=== PATIENT | female | born 1975 | race Caucasian/White ===

== ENCOUNTER 2017-04-26 11:26 | Day surgery (SDC) | payer MEDICAID ==
[2017-04-23 09:55] VITALS: BMI 29.2
[2017-04-26] MEDS ORDERED: Gentamicin 160 MG in Sodium Chloride 0.9% 100 ML IVPB ONE (12:47)
[2017-04-26] MEDS ORDERED: Ciprofloxacin 400mg/200ml D5W 400 MG/200 ML BAG IVPB ONE (14:33)
[2017-04-26] MEDS ORDERED: Midazolam 2 MG/2 ML VIAL ONE (14:49)
[2017-04-26] MEDS ORDERED: Propofol 10 mg/ml Inj (20 ML) ONE (14:50)
[2017-04-26] MEDS ORDERED: Labetalol 25mg/5ml Syringe ONE (15:32)
[2017-04-26] MEDS ORDERED: Lactated Ringer's 1,000 ML IV ONE (15:40)
[2017-04-26] MEDS: HYDROmorphone 0.5 mg/0.5 ml ISec IVP PRN ×3 (15:40→16:44)
--- NOTE | 2017-04-26 16:50 | RAD ---
HISTORY: URETERAL STONE COMPARISON: No prior. FINDINGS: BOWEL: Normal. No obstruction. No free air. BONES: Normal. OTHER FINDINGS: Position of the double J stent catheter(s): Satisfactory. Calculi identified lower pole right kidney. Calculus overlying the proximal aspect of the ureteral stent measuring 9 mm. IMPRESSION: Calculus disease proximal right ureter and lower pole right kidney. Double-J stent catheter on the right in satisfactory position.
--- NOTE | 2017-04-26 16:51 | RAD ---
PROCEDURE: Intraoperative Fluoroscopy. HISTORY: URETERAL STONE FINDINGS: Fluoroscopic assistance was provided for cystogram and retrograde study. Please refer to the operative report from ROSSY Clark. 25.3 seconds fluoro time employed. Dosimetry: 1.96 mGy per meter squared.
[2017-04-26] MEDS ORDERED: Lactated Ringer's 500 ML IV ONE (17:05)
[2017-04-26 17:37] VITALS: BP 128/71; PULSE 73; RESP 18; TEMP 98; O2SAT 100
--- NOTE | 2017-04-29 00:32 | OP ---
PROCEDURE DATE: 04/26/2017. PREOPERATIVE DIAGNOSIS: Right upper ureteral calculi. POSTOPERATIVE DIAGNOSIS: Right upper ureteral calculi. PROCEDURES: Ureteroscopy, laser lithotripsy, stone manipulation, removal of stent and reinsertion of new stent. FINDINGS: An upper ureteral calculi. DESCRIPTION OF PROCEDURE: The procedure is as follows. Prior to the procedure, a detailed informed consent was obtained from the patient. She was apprised to all risks and complications of ureteroscopy and laser lithotripsy and alternative methods of treatment. She agreed to accept the risks and she was brought into the room, draped and prepped in the usual manner. She received prophylactic antibiotics. A timeout was taken according to the rules and regulations of [facility]. The patient was then cystoscoped with #21 Storz panendoscope after fluoroscopy revealed that a stone was still present in the upper ureter. The tip of the stent was grasped and pulled up the ureter. A guidewire was passed through the stent and up into the renal pelvis and then the stent was removed. The cystoscope was removed. The guidewire was fixed to the drape. The patient then had the ureteroscope inserted with a second guidewire in the ureteroscope. That second guidewire was passed up to the right ureteral orifice and into the renal pelvis under fluoroscopic control. Hydrodilatation of the ureter was then carried out and the scope was passed up to the upper ureter until the stone was encountered. The guidewire with endoscope was removed and replaced with the laser fiber and the stone was fragmented into multiple small fragments using the laser. Once all the stone parts have been fragmented to sizes small enough to pass spontaneously, laser fiber was removed and the guidewire was reinserted under fluoroscopic control. The scope was backed out. A 6-[place] double-J stent in variable length was then passed over the original guidewire and positioned in proper position. Both guidewires were then slowly removed using the pusher to keep the stent from being pulled out also. The stent was deployed in the proper position. Fluoroscopy showed no evidence of radiopaque calculi remaining. The string was left on the stent. The patient tolerated this procedure very well. She was sent to the recovery room in good condition. She will be given detailed postoperative instructions and followup appointment in our office in one week. Mik Whiteside MD [facility] # [id number]
== END 2017-04-26 18:41 | disposition home or self-care (01) ==
LOC: C.SDS 11:26
PROVIDERS: ATTEND Urology
DX: N20.0 Calculus of kidney (principal); N20.2 Calculus of kidney with calculus of ureter
CPT/HCPCS: 50953; 50961; 74018; 82948; 88304; C1758; C1769; C2617; J1170; J2405; J7120

== ENCOUNTER 2017-05-09 17:52 | Inpatient (IN) | payer MEDICAID ==
[2017-05-09 17:53] VITALS: BMI 29.2
[2017-05-09] MEDS ORDERED: Sodium Chloride 0.9% 1,000 ML ONE (18:48)
[2017-05-09] MEDS ORDERED: Sodium Chloride 0.9% 1,000 ML IV ONE ×2 (18:49→20:43)
[2017-05-09] MEDS ORDERED: cefTRIAXone IV 1 gm in Dextros 50 ML IV ONE (18:50)
[2017-05-09] MEDS ORDERED: cefTRIAXone IV 1 gm in Dextros 50 ML IVPB ONE (19:07)
[2017-05-09 19:11] LABS: BASO # 0.1 K/uL (0.0-0.2); BASO % 0.7 % (0.0-2.0); EOS % 0.1 % (0.0-4.0); HEMOGLOBIN 10.8 g/dL (11.0-16.0); LYMPH # 1.4 K/uL (1.0-4.3); LYMPH % 9.8 % (20.0-40.0); MEAN CELL VOLUME 86.3 fL (81.0-99.0); MEAN CORPUSCULAR HEMOGLOBIN 29.7 pg (27.0-31.0); MEAN CORPUSCULAR HGB CONC 34.4 g/dL (33.0-37.0); MEAN PLATELET VOLUME 7.8 fL (7.2-11.7); MONO # 1.6 K/uL (0.0-0.8); MONO % 11.3 % (0.0-10.0); NEUT # 10.9 K/uL (1.8-7.0); NEUT % 78.1 % (50.0-75.0); PLATELET COUNT 211 K/uL (130-400); RBC 3.64 Mil/uL (3.80-5.20); RED CELL DISTRIBUTION WIDTH 14.1 % (11.5-14.5); WHITE BLOOD COUNT 13.9 K/uL (4.8-10.8)
[2017-05-09 19:21] LABS: ALB/GLOB RATIO 0.8 (1.0-2.1); ALBUMIN 4.3 g/dL (3.5-5.0); ALT/SGPT 17 U/L (9-52); AST/SGOT 19 U/L (14-36); BLOOD UREA NITROGEN 6 mg/dL (7-17); CALCIUM 9.2 mg/dl (8.6-10.4); GFR AFRICAN-AMERICAN > 60; GFR NON-AFRICAN AMERICAN > 60
[2017-05-09 19:30] LABS: INR 1.3; PROTHROMBIN TIME 14.8 SECONDS (9.7-12.2)
[2017-05-09 19:47] LABS: BANDS 8 % (0-2); LYMPHOCYTE 10 % (20-40); MONOCYTE 14 % (0-10); NEUTROPHIL 68 % (50-75); TOTAL CELLS COUNTED 100
[2017-05-09 19:50] LABS: HYPOCHROMIC SLIGHT; LARGE PLATELETS PRESENT; MICROCYTOSIS SLIGHT; PLATELET ESTIMATE NORMAL (NORMAL)
[2017-05-09 20:01] LABS: SQUAMOUS EPITHIAL 3 /hpf (0-5); URINE BACTERIA MOD (<OCC); URINE BILIRUBIN NEGATIVE (NEGATIVE); URINE BLOOD 2+ (NEGATIVE); URINE CLARITY Hazy (Clear); URINE COLOR Amber (YELLOW); URINE GLUCOSE (UA) NORMAL (Normal); URINE PROTEIN 2+ mg/dL (NEGATIVE)
--- NOTE | 2017-05-09 20:01 | C.PDOC ---
History Of Present Illness 41yo female, presents to ED with complaints of fever, chills, dysuria for the past couple days. Patient states she was treated for a UTI last month by Dr. Whiteside. She had a right uretral stent, which was removed for a lithotrypsy and replaced on April 28, 2017. She denies any other medical complaints. Time Seen by Provider: 05/09/17 18:37 Chief Complaint (Nursing): Abdominal Pain History Per: Patient History/Exam Limitations: no limitations Onset/Duration Of Symptoms: Days Current Symptoms Are (Timing): Still Present Associated Symptoms: Fever, Chills, Urinary Symptoms. denies: Nausea, Vomiting , Diarrhea Past Medical History Reviewed: Historical Data, Nursing Documentation, Vital Signs Vital Signs: Last Vital Signs Temp 101.9 F H 05/09/17 20:14 Pulse 135 H 05/09/17 20:14 Resp 20 05/09/17 20:14 BP 113/67 05/09/17 20:14 Pulse Ox 95 05/09/17 20:35 - Medical History PMH: Anemia, Hypercholesterolemia, Hypothyroidism, Kidney Stones, Chronic Kidney Disease Surgical History: Cholecystectomy, Endoscopy Family History: States: No Known Family Hx - Social History Hx Alcohol Use: No Hx Substance Use: No - Immunization History Hx Tetanus Toxoid Vaccination: No Hx Influenza Vaccination: No Hx Pneumococcal Vaccination: No Review Of Systems Except As Marked, All Systems Reviewed And Found Negative. Constitutional: Positive for: Fever, Chills Gastrointestinal: Negative for: Nausea, Vomiting, Abdominal Pain Genitourinary: Positive for: Dysuria Physical Exam - Physical Exam Appears: Non-toxic, Other (mild to moderate distress) Skin: Normal Color Head: Normacephalic Eye(s): bilateral: Normal Inspection Neck: Normal ROM, Supple Chest: Symmetrical Cardiovascular: Rhythm Regular Respiratory: Normal Breath Sounds Gastrointestinal/Abdominal: Normal Exam, Soft, Tenderness (right upper abdomen tenderness to deep palpation) Back: CVA Tenderness (right) Extremity: Normal ROM Neurological/Psych: Oriented x3 ED Course And Treatment - Laboratory Results Result Diagrams: 05/09/17 19:05 05/09/17 19:05 Lab Interpretation: Abnormal (UA 238 WBC's) ECG: Interpreted By Me, Viewed By Me ECG Rhythm: Sinus Tachycardia Rate From EC O2 Sat by Pulse Oximetry: 95 (RA) - Radiology CXR: Interpreted by Me CXR Interpretation: Yes: No Acute Disease - Other Rad abd x 2 X-Ray: Interpreted by Me (R ureteral stent in good place) Reevaluation Time: 20:44 Reassessment Condition: Improved - Physician Consult Information Outcome Of Conversation: 1939: d/w Dr. Devon Pino, ok to admit. 2039: d/w Dr. Whiteside will consult Medical Decision Making Medical Decision Making: Plan: -- Labs -- EKG -- Fluids -- Rocephin 1gm IV -- Toradol 30mg IVP -- Tylenol 975 mg PO Time: 1942 Patient to be admitted under Dr. Boris Pino for pyelonephritis. recurent UTI/R pyelo with R ureteral stent in place. Disposition Doctor Will See Patient In The: Hospital Counseled Patient/Family Regarding: Studies Performed, Diagnosis - Disposition Disposition: HOSPITALIZED Disposition Time: 20:45 Condition: GOOD - Clinical Impression Clinical Impression: Pain due to ureteral stent, Pyelonephritis - Scribe Statement The provider has reviewed the documentation as recorded by the Scribe (Duyen Delgado) Provider Attestation: All medical record entries made by the Scribe were at my direction and personally dictated by me. I have reviewed the chart and agree that the record accurately reflects my personal performance of the history, physical exam, medical decision making, and the department course for this patient. I have also personally directed, reviewed, and agree with the discharge instructions and disposition.
[2017-05-09 20:03] LABS: URINE LEUKOCYTE ESTERASE 2+ Leu/uL (Negative)
[2017-05-09] MEDS ORDERED: Vancomycin 1 GM in Sodium Chloride 0.9% 200 ML IVPB STA (22:54)
[2017-05-09] MEDS ORDERED: Potassium Chloride 20 mEq ER Tab PO ONE (23:15)
[2017-05-09] MEDS: Oxycodone/Acetaminophen 5/325 mg Tab PO PRN (23:48)
[2017-05-09] MEDS: Ciprofloxacin 400mg/200ml D5W 400 MG/200 ML BAG IVPB SCH (23:53)
[2017-05-10] MEDS ORDERED: Dextrose 50% SYRINGE Inj (50 ml) IV PRN (06:22)
[2017-05-10] MEDS ORDERED: Glucagon Recombinant 1 mg Inj IM PRN (06:22)
--- NOTE | 2017-05-10 06:26 | CP.PCM.PN ---
Subjective - Date & Time of Evaluation Date of Evaluation: 05/10/17 Time of Evaluation: 06:14 - Subjective Subjective: PGY-[address] Pino's service: Pt seen and examined at bedside. Nursing reports patient febrile overnight. STAT tylenol ordered, which did not bring down fever, so Motrin was ordered. Patient c/o of bilateral headache at this time, and burning with urination. Admits fever, chills, palpitations but denies increased frequency, SOB, chest pain. CODE SEPSIS due to elevated lactate. Dr Landa consulted. Stat Gentamycin and Merrem orders entered. IV fluids initiated. Objective - Vital Signs/Intake and Output Vital Signs (last 24 hours): Temp Pulse Resp BP Pulse Ox 98.2 F 130 H 20 100/62 95 05/10/17 05:04 05/10/17 05:04 05/10/17 05:04 05/10/17 05:04 05/10/17 00:00 - Medications Medications: Current Medications Acetaminophen (Tylenol 325mg Tab) 650 mg PO Q6 PRN PRN Reason: Fever >100.4 F Last Admin: 05/09/17 23:52 Dose: 650 mg Gemfibrozil (Lopid) 600 mg PO BID NAJMA Ciprofloxacin (Cipro 400mg/200ml Dsw) 400 mg in 200 mls @ 133 mls/hr IVPB Q12H NAJMA PRN Reason: Protocol Last Admin: 05/09/17 23:53 Dose: 133 mls/hr Insulin Aspart (Novolog) 0 unit SC ACHS NAJMA PRN Reason: Protocol Levothyroxine Sodium (Synthroid) 50 mcg PO DAILY@0630 NAJMA Metformin HCl (Glucophage) 500 mg PO BID NAJMA Oxycodone/Acetaminophen (Percocet 5/325 Mg Tab) 1 tab PO Q6H PRN PRN Reason: pain Stop: 05/12/17 22:55 Last Admin: 05/09/17 23:48 Dose: 1 tab Pneumococcal Polyvalent Vaccine (Pneumovax 23 Vaccine) 0.5 ml IM .ONCE ONE Stop: 05/11/17 10:01 - Labs Labs: 05/09/17 19:05 05/09/17 19:05 PT 14.8 SECONDS (9.7-12.2) H 05/09/17 19:05 INR 1.3 05/09/17 19:05 APTT 29 SECONDS (21-34) 05/09/17 19:05 - Constitutional Appears: Non-toxic, No Acute Distress - Head Exam Head Exam: ATRAUMATIC, NORMAL INSPECTION - Eye Exam Eye Exam: EOMI. absent: Scleral icterus Pupil Exam: PERRL - ENT Exam ENT Exam: Mucous Membranes Dry - Neck Exam Neck Exam: Full ROM - Respiratory Exam Respiratory Exam: Clear to Ausculation Bilateral, NORMAL BREATHING PATTERN. absent: Rales, Rhonchi, Wheezes - Cardiovascular Exam Cardiovascular Exam: Tachycardia, +S1, +S2 - GI/Abdominal Exam GI & Abdominal Exam: Soft, Tenderness (RUQ abdominal pain), Normal Bowel Sounds. absent: Distended, Firm, Hernia Assessment and Plan - Assessment and Plan (Free Text) Plan: Sepsis Lactate 3.2 this AM; Tmax 102.7, Tachy @ >130 bpm Source: Pyelonephritis STAT CBC/CMP ordered Spoke with Dr. Landa, ID hr consultant, this AM STAT Gentamycin ONCE + Merrem 500mg Q8H LR @ 150cc/hr F/u repeat lactate in 3 hours Pyelonephritis, acute Admit to med/surg Febrile on admission (Tmax 102.7) UA: Nitrate positive, LE 2+, WBC 238, Mod bacteria HCG negative Dr. Landa, ID hr consultant, help appreciated - Cipro 400mg IV Q12h (Start 05/09/17, Day 2) STAT Gentamycin ONCE + Merrem 500mg Q8H Tylenol 650mg PO Q6H PRN fever Percocet 5/325 mg PO Q6H PRN Hx of ureteral stones Dr. Whiteside, Urology hr consultant, help appreciated Recent lithotripsy Right ureteral stent placed 04/28/17 Xr ABD (05/10/17): Stent remains in appropriate position. Leukocytosis with bandemia WBC 13.9, 8 bands See sepsis above f/u AM labs DM-II Metformin 500mg PO BID DAR Accuchecks Hypoglycemia protocol f/u A1c, Lipid panel Hyperlipidemia Gemfibrozil 600mg PO BID Hypothyroidism 50mcg PO Daily f/u TSH, Free t4 Anemia Hgb 10.8 on presenation Monitor Elevated T bili 1.8 on initial labs Will monitor Electrolyte abnormalities Will replete as needed Prophylaxis SCDs Protonix 40mg PO Daily Lovenox 40mg SC daily Wilfredo Joel PGY-2 All medical management per Dr. Pino
[2017-05-10] MEDS: Levothyroxine 50 MCG TAB PO SCH (06:32)
[2017-05-10] MEDS: (Novolog) Insulin Aspart, Recombinant 100 u/ml 10 ml vial SC SCH ×4 (08:14→22:07)
[2017-05-10] MEDS ORDERED: Lactated Ringer's 1,000 ML IV SCH ×2 (09:30→09:33)
[2017-05-10 09:53] LABS: VENOUS BLOOD GAS BASE EXCESS 1.6 mmol/L (0.0-2.0); VENOUS BLOOD GAS PCO2 33 mmHg (40-60); VENOUS BLOOD GAS PO2 47 mm/Hg (30-55); VENOUS BLOOD PH 7.48 (7.32-7.43)
[2017-05-10] MEDS: Pantoprazole 40 mg EC Tab PO SCH (10:16)
--- NOTE | 2017-05-10 10:16 | PCM.SEPTIC ---
Sepsis Progress Note - Reassessment Type Date of Evaluation: 05/10/17 Time of Evaluation: 10:15 Reassessment Type: Non-invasive reassessment - Non Invasive Reassessment Were the most recent vital sign reviewed: Yes Vital Sign (Latest): Temp Pulse Resp BP Pulse Ox 102.8 F H 135 H 20 96/61 L 97 05/10/17 09:14 05/10/17 08:01 05/10/17 08:01 05/10/17 08:01 05/10/17 08:01 Cardiovascular: Yes: Tachycardia. No: Gallop, JVD, Murmur Respiratory: No: Accessory Muscle Use, Rales, Rhonchi, Stridor, Wheezing, Respiratory Distress Capillary Refill: Normal (Less than 2 sec) Pulses: Normal Radial, Normal Dorsalis Pedis, Normal Posterior Tibialis Skin: Normal Color, Warm, Dry Was a central venous oxygen measurement obtained within 6 hours after the presentation of septic shock: No Was a bedside cardiovascular ultrasound performed within 6 hours after the presentation of septic shock: No Was a passive leg raise performed or was a fluid challenge performed within 6 hrs of the initial fluid bolus: No Fluid Challenge performed: Yes
[2017-05-10] MEDS ORDERED: Meropenem 500 MG in Sodium Chloride 0.9% 100 ML IVPB SCH (11:00)
[2017-05-10 11:14] LABS: HDL CHOLESTEROL 14 mg/dL (30-70)
[2017-05-10 11:16] LABS: BASO % 0.3 % (0.0-2.0); EOS % 0.2 % (0.0-4.0); LYMPH # 1.4 K/uL (1.0-4.3); LYMPH % 12.7 % (20.0-40.0); MEAN CELL VOLUME 85.6 fL (81.0-99.0); MEAN PLATELET VOLUME 7.7 fL (7.2-11.7); MONO # 1.3 K/uL (0.0-0.8); MONO % 12.1 % (0.0-10.0); NEUT % 74.7 % (50.0-75.0); RBC 2.85 Mil/uL (3.80-5.20); RED CELL DISTRIBUTION WIDTH 13.8 % (11.5-14.5); WHITE BLOOD COUNT 10.7 K/uL (4.8-10.8)
[2017-05-10 11:17] LABS: HEMOGLOBIN 8.6 g/dL (11.0-16.0)
[2017-05-10 11:28] LABS: ALB/GLOB RATIO 0.9 (1.0-2.1); ALBUMIN 3.2 g/dL (3.5-5.0); ALT/SGPT 13 U/L (9-52); AST/SGOT 16 U/L (14-36); BLOOD UREA NITROGEN 7 mg/dL (7-17); CALCIUM 8.4 mg/dl (8.6-10.4); GFR AFRICAN-AMERICAN > 60; GFR NON-AFRICAN AMERICAN > 60; LDL CHOLESTEROL < 30 mg/dL (0-129)
--- NOTE | 2017-05-10 11:56 | CARD ---
APPROVED REPORT EKG Measurement Heart [id number] <Conclusion> Sinus tachycardia with short AK Cannot rule out Anterior infarct, age undetermined Abnormal ECG
--- NOTE | 2017-05-10 12:06 | CP.PCM.PN ---
Subjective - Date & Time of Evaluation Date of Evaluation: 05/10/17 Time of Evaluation: 12:00 - Subjective Subjective: 41 year old female admitted thru er who had ureteroscopy last week and spiked temp despite being on cipro. Kub shows stent in good position,Pt has temp now but am wbc is less than admission.urine C&S is positive for Gram neg RODS. A Pylonephritis P Treat infection with sensitive antibiotics as per urine C&S Suggest ct scan to RO Abcess. IF temp fails to drop with sensitive antibiotics consider ID consult. Stevo Objective - Vital Signs/Intake and Output Vital Signs (last 24 hours): Temp Pulse Resp BP Pulse Ox 102.8 F H 135 H 20 96/61 L 97 05/10/17 09:14 05/10/17 08:01 05/10/17 08:01 05/10/17 08:01 05/10/17 08:01 - Medications Medications: Current Medications Acetaminophen (Tylenol 325mg Tab) 650 mg PO Q6 PRN PRN Reason: Fever >100.4 F Last Admin: 05/10/17 08:14 Dose: 650 mg Dextrose (Dextrose 50% Inj) 0 ml IV STAT PRN; Protocol PRN Reason: Hypoglycemia Protocol Dextrose (Glutose 15) 0 gm PO ONCE PRN; Protocol PRN Reason: Hypoglycemia Protocol Enoxaparin Sodium (Lovenox) 40 mg SC DAILY [facility] Gemfibrozil (Lopid) 600 mg PO BID [facility] Last Admin: 05/10/17 10:16 Dose: 600 mg Glucagon (Glucagen Diagnostic Kit) 0 mg IM STAT PRN; Protocol PRN Reason: Hypoglycemia Protocol Ciprofloxacin (Cipro 400mg/200ml Dsw) 400 mg in 200 mls @ 133 mls/hr IVPB Q12H [facility] PRN Reason: Protocol Last Admin: 05/09/17 23:53 Dose: 133 mls/hr Dextrose (Dextrose 5% In Water 1000 Ml) 1,000 mls @ 0 mls/hr IV .Q0M PRN; Protocol; Per Protocol PRN Reason: Hypoglycemia Protocol Lactated Ringer's (Lactated Ringer's) 1,000 mls @ 150 mls/hr IV .Q6H40M [facility] Last Admin: 05/10/17 09:40 Dose: 150 mls/hr Meropenem 500 mg/ Sodium (Chloride) 100 mls @ 100 mls/hr IVPB Q8H NAJMA PRN Reason: Protocol Insulin Aspart (Novolog) 0 unit SC ACHS NAJMA PRN Reason: Protocol Last Admin: 05/10/17 08:14 Dose: 2 unit Levothyroxine Sodium (Synthroid) 50 mcg PO DAILY@0630 [facility] Last Admin: 05/10/17 06:32 Dose: 50 mcg Metformin HCl (Glucophage) 500 mg PO BID [facility] Last Admin: 05/10/17 10:16 Dose: 500 mg [id number] Ethyl Esters (Lovaza) 1 gm PO BID [facility] Oxycodone/Acetaminophen (Percocet 5/325 Mg Tab) 1 tab PO Q6H PRN PRN Reason: pain Stop: 05/12/17 22:55 Last Admin: 05/09/17 23:48 Dose: 1 tab Pantoprazole Sodium (Protonix Ec Tab) 40 mg PO DAILY [facility] Last Admin: 05/10/17 10:16 Dose: 40 mg Pneumococcal Polyvalent Vaccine (Pneumovax 23 Vaccine) 0.5 ml IM .ONCE ONE Stop: 05/11/17 10:01 Potassium Chloride (K-Dur 20 Meq Er Tab) 40 meq PO Q2H [facility] Stop: 05/10/17 13:31 - Labs Labs: 05/10/17 10:45 05/10/17 10:45 PT 14.8 SECONDS (9.7-12.2) H 05/09/17 19:05 INR 1.3 05/09/17 19:05 APTT 29 SECONDS (21-34) 05/09/17 19:05
--- NOTE | 2017-05-10 12:11 | CP.PCM.CON ---
History of Present Illness - History of Present Illness History of Present Illness: 41yo female, presents to ED with complaints of fever, chills, dysuria for the past couple days. Patient states she was treated for a UTI last month by Dr. Whiteside. She had a right uretral stent, which was removed for a lithotrypsy and replaced on April 28, 2017. She denies any other medical complaints. - Medical History PMH: Anemia, Hypercholesterolemia, Hypothyroidism, Kidney Stones, Chronic Kidney Disease Surgical History: Cholecystectomy, Endoscopy Family History: States: No Known Family Hx - Social History Hx Alcohol Use: No Hx Substance Use: No - Immunization History Hx Tetanus Toxoid Vaccination: No Hx Influenza Vaccination: No Hx Pneumococcal Vaccination: No Review Of Systems Except As Marked, All Systems Reviewed And Found Negative. Constitutional: Positive for: Fever, Chills Gastrointestinal: Negative for: Nausea, Vomiting, Abdominal Pain Genitourinary: Positive for: Dysuria Past Patient History - Past Medical History & Family History Past Medical History?: Yes - Past Social History Smoking Status: Never Smoked - CARDIAC Hx Cardiac Disorders: Yes Hx Hypercholesterolemia: Yes - PULMONARY Hx Respiratory Disorders: No - NEUROLOGICAL Hx Neurological Disorder: No - HEENT Hx HEENT Problems: No - RENAL Hx Chronic Kidney Disease: Yes Hx Kidney Stones: Yes - ENDOCRINE/METABOLIC Hx Endocrine Disorders: Yes Hx Diabetes Mellitus Type 2: Yes Hx Hypothyroidism: Yes - HEMATOLOGICAL/ONCOLOGICAL Hx Blood Disorders: Yes Hx Anemia: Yes - INTEGUMENTARY Hx Dermatological Problems: No - MUSCULOSKELETAL/RHEUMATOLOGICAL Hx Falls: No - GASTROINTESTINAL Hx Gastrointestinal Disorders: No - GENITOURINARY/GYNECOLOGICAL Hx Genitourinary Disorders: Yes Other/Comment: POLYCYSTIC OVARIES - PSYCHIATRIC Hx Substance Use: No - SURGICAL HISTORY Hx Surgeries: Yes Hx Cholecystectomy: Yes Other/Comment: lithotripsy, insertion of ureteral stent right - ANESTHESIA Hx Anesthesia: Yes Hx Anesthesia Reactions: No Hx Malignant Hyperthermia: No Has any member of the family had a problem w/ anesthesia?: No Meds Allergies/Adverse Reactions: Allergies Allergy/AdvReac Type Severity Reaction Status Date / Time No Known Allergies Allergy Verified 05/09/17 18:08 - Medications Medications: Current Medications Acetaminophen (Tylenol 325mg Tab) 650 mg PO Q6 PRN PRN Reason: Fever >100.4 F Last Admin: 05/10/17 08:14 Dose: 650 mg Dextrose (Dextrose 50% Inj) 0 ml IV STAT PRN; Protocol PRN Reason: Hypoglycemia Protocol Dextrose (Glutose 15) 0 gm PO ONCE PRN; Protocol PRN Reason: Hypoglycemia Protocol Enoxaparin Sodium (Lovenox) 40 mg SC DAILY [facility] Gemfibrozil (Lopid) 600 mg PO BID [facility] Last Admin: 05/10/17 10:16 Dose: 600 mg Glucagon (Glucagen Diagnostic Kit) 0 mg IM STAT PRN; Protocol PRN Reason: Hypoglycemia Protocol Ciprofloxacin (Cipro 400mg/200ml Dsw) 400 mg in 200 mls @ 133 mls/hr IVPB Q12H NAJMA PRN Reason: Protocol Last Admin: 05/09/17 23:53 Dose: 133 mls/hr Dextrose (Dextrose 5% In Water 1000 Ml) 1,000 mls @ 0 mls/hr IV .Q0M PRN; Protocol; Per Protocol PRN Reason: Hypoglycemia Protocol Lactated Ringer's (Lactated Ringer's) 1,000 mls @ 150 mls/hr IV .Q6H40M [facility] Last Admin: 05/10/17 09:40 Dose: 150 mls/hr Meropenem 500 mg/ Sodium (Chloride) 100 mls @ 100 mls/hr IVPB Q8H [facility] PRN Reason: Protocol Last Admin: 05/10/17 12:09 Dose: 100 mls/hr Insulin Aspart (Novolog) 0 unit SC ACHS [facility] PRN Reason: Protocol Last Admin: 05/10/17 08:14 Dose: 2 unit Levothyroxine Sodium (Synthroid) 50 mcg PO DAILY@0630 [facility] Last Admin: 05/10/17 06:32 Dose: 50 mcg Metformin HCl (Glucophage) 500 mg PO BID [facility] Last Admin: 05/10/17 10:16 Dose: 500 mg [id number] Ethyl Esters (Lovaza) 1 gm PO BID [facility] Oxycodone/Acetaminophen (Percocet 5/325 Mg Tab) 1 tab PO Q6H PRN PRN Reason: pain Stop: 05/12/17 22:55 Last Admin: 05/09/17 23:48 Dose: 1 tab Pantoprazole Sodium (Protonix Ec Tab) 40 mg PO DAILY [facility] Last Admin: 05/10/17 10:16 Dose: 40 mg Pneumococcal Polyvalent Vaccine (Pneumovax 23 Vaccine) 0.5 ml IM .ONCE ONE Stop: 05/11/17 10:01 Potassium Chloride (K-Dur 20 Meq Er Tab) 40 meq PO Q2H NAJMA Stop: 05/10/17 13:31 Physical Exam - Constitutional Appears: Chronically Ill - Head Exam Head Exam: ATRAUMATIC, NORMOCEPHALIC - Eye Exam Eye Exam: PERRL. absent: Scleral icterus - ENT Exam ENT Exam: Mucous Membranes Dry - Neck Exam Neck exam: Negative for: Lymphadenopathy - Respiratory Exam Respiratory Exam: Decreased Breath Sounds, Clear to Auscultation Bilateral - Cardiovascular Exam Cardiovascular Exam: REGULAR RHYTHM, +S1, +S2 - GI/Abdominal Exam GI & Abdominal Exam: Diminished Bowel Sounds, Soft. absent: Tenderness - Rectal Exam Rectal Exam: Deferred - Exam Exam: NORMAL INSPECTION - Extremities Exam Extremities exam: Negative for: pedal edema - Back Exam Back exam: absent: CVA tenderness (L), CVA tenderness (R), paraspinal tenderness - Neurological Exam Neurological exam: Alert, CN II-XII Intact, Oriented x3, Reflexes Normal - Psychiatric Exam Psychiatric exam: Normal Mood - Skin Skin Exam: Dry Results - Vital Signs Recent Vital Signs: Last Vital Signs Temp 102.8 F H 05/10/17 09:14 Pulse 135 H 05/10/17 08:01 Resp 20 05/10/17 08:01 BP 96/61 L 05/10/17 08:01 Pulse Ox 97 05/10/17 08:01 - Labs Result Diagrams: 05/10/17 10:45 05/10/17 10:45 Labs: Laboratory Results - last 24 hr 05/09/17 05/09/17 05/09/17 18:49 19:05 19:05 WBC 13.9 H RBC 3.64 L Hgb 10.8 L Hct 31.4 L MCV 86.3 MCH 29.7 MCHC 34.4 RDW 14.1 Plt Count 211 MPV 7.8 Neut % (Auto) 78.1 H Lymph % (Auto) 9.8 L [place] % (Auto) 11.3 H Eos % (Auto) 0.1 Baso % (Auto) 0.7 Neut # (Auto) 10.9 H Lymph # (Auto) 1.4 [place] # (Auto) 1.6 H Eos # (Auto) 0.0 Baso # (Auto) 0.1 Neutrophils % (Manual) 68 Band Neutrophils % 8 H Lymphocytes % (Manual) 10 L Monocytes % (Manual) 14 H Platelet Estimate Normal Large Platelets Present Hypochromasia (manual) Slight Microcytosis (manual) Slight PT 14.8 H INR 1.3 APTT 29 pO2 VBG pH VBG pCO2 VBG HCO3 VBG Total CO2 VBG O2 Sat (Calc) VBG Base Excess VBG Potassium Glucose Lactate Sodium Potassium Chloride Carbon Dioxide Anion Gap BUN Creatinine Est GFR ( Amer) Est GFR (Non-Af Amer) POC Glucose (mg/dL) Random Glucose Hemoglobin A1c Calcium Total Bilirubin AST ALT Alkaline Phosphatase Troponin I Total Protein Albumin Globulin Albumin/Globulin Ratio Triglycerides Cholesterol LDL Cholesterol Direct HDL Cholesterol Venous Blood Potassium Urine Color [place] Urine Clarity Hazy Urine pH 5.0 Ur Specific [place] 1.019 Urine Protein 2+ H Urine Glucose (UA) Normal Urine Ketones Negative Urine Blood 2+ H Urine Nitrate Positive H Urine Bilirubin Negative Urine Urobilinogen 4.0 H Ur Leukocyte Esterase 2+ H Urine WBC (Auto) 238 H Urine RBC (Auto) 224 H Ur Squamous Epith Cells 3 Urine Bacteria Mod H Urine HCG, Qual 05/09/17 05/09/17 05/10/17 19:05 19:27 07:25 WBC RBC Hgb Hct MCV MCH MCHC RDW Plt Count MPV Neut % (Auto) Lymph % (Auto) [place] % (Auto) Eos % (Auto) Baso % (Auto) Neut # (Auto) Lymph # (Auto) [place] # (Auto) Eos # (Auto) Baso # (Auto) Neutrophils % (Manual) Band Neutrophils % Lymphocytes % (Manual) Monocytes % (Manual) Platelet Estimate Large Platelets Hypochromasia (manual) Microcytosis (manual) PT INR APTT pO2 VBG pH VBG pCO2 VBG HCO3 VBG Total CO2 VBG O2 Sat (Calc) VBG Base Excess VBG Potassium Glucose Lactate Sodium 142 Potassium 3.4 L Chloride 95 L Carbon Dioxide 22 Anion Gap 28 H BUN 6 L Creatinine 0.6 L Est GFR ( Amer) > 60 Est GFR (Non-Af Amer) > 60 POC Glucose (mg/dL) 233 H Random Glucose 258 H Hemoglobin A1c Calcium 9.2 Total Bilirubin 1.8 H AST 19 ALT 17 Alkaline Phosphatase 64 Troponin I < 0.0120 Total Protein 9.3 H Albumin 4.3 Globulin 5.0 H Albumin/Globulin Ratio 0.8 L Triglycerides Cholesterol LDL Cholesterol Direct HDL Cholesterol Venous Blood Potassium Urine Color Urine Clarity Urine pH Ur Specific [place] Urine Protein Urine Glucose (UA) Urine Ketones Urine Blood Urine Nitrate Urine Bilirubin Urine Urobilinogen Ur Leukocyte Esterase Urine WBC (Auto) Urine RBC (Auto) Ur Squamous Epith Cells Urine Bacteria Urine HCG, Qual Negative 05/10/17 05/10/17 05/10/17 09:50 10:45 10:45 WBC RBC Hgb Hct MCV MCH MCHC RDW Plt Count MPV Neut % (Auto) Lymph % (Auto) [place] % (Auto) Eos % (Auto) Baso % (Auto) Neut # (Auto) Lymph # (Auto) [place] # (Auto) Eos # (Auto) Baso # (Auto) Neutrophils % (Manual) Band Neutrophils % Lymphocytes % (Manual) Monocytes % (Manual) Platelet Estimate Large Platelets Hypochromasia (manual) Microcytosis (manual) PT INR APTT pO2 47 VBG pH 7.48 H VBG pCO2 33 L VBG HCO3 25.9 VBG Total CO2 25.6 VBG O2 Sat (Calc) 89.1 H VBG Base Excess 1.6 VBG Potassium 3.3 L Glucose 278 H Lactate 3.2 H Sodium 139.0 Potassium Chloride 108.0 H Carbon Dioxide Anion Gap BUN Creatinine Est GFR ( Amer) Est GFR (Non-Af Amer) POC Glucose (mg/dL) Random Glucose Hemoglobin A1c 4.6 Calcium Total Bilirubin AST ALT Alkaline Phosphatase Troponin I Total Protein Albumin Globulin Albumin/Globulin Ratio Triglycerides 496 H Cholesterol 133 LDL Cholesterol Direct < 30 HDL Cholesterol 14 L Venous Blood Potassium 3.3 L Urine Color Urine Clarity Urine pH Ur Specific [place] Urine Protein Urine Glucose (UA) Urine Ketones Urine Blood Urine Nitrate Urine Bilirubin Urine Urobilinogen Ur Leukocyte Esterase Urine WBC (Auto) Urine RBC (Auto) Ur Squamous Epith Cells Urine Bacteria Urine HCG, Qual 05/10/17 05/10/17 05/10/17 10:45 10:45 11:13 WBC 10.7 RBC 2.85 L Hgb 8.6 L D Hct 24.4 L MCV 85.6 MCH 30.0 MCHC 35.0 RDW 13.8 Plt Count 173 MPV 7.7 Neut % (Auto) 74.7 Lymph % (Auto) 12.7 L [place] % (Auto) 12.1 H Eos % (Auto) 0.2 Baso % (Auto) 0.3 Neut # (Auto) 8.0 H Lymph # (Auto) 1.4 [place] # (Auto) 1.3 H Eos # (Auto) 0.0 Baso # (Auto) 0.0 Neutrophils % (Manual) Band Neutrophils % Lymphocytes % (Manual) Monocytes % (Manual) Platelet Estimate Large Platelets Hypochromasia (manual) Microcytosis (manual) PT INR APTT pO2 VBG pH VBG pCO2 VBG HCO3 VBG Total CO2 VBG O2 Sat (Calc) VBG Base Excess VBG Potassium Glucose Lactate Sodium 143 Potassium 3.4 L Chloride 101 Carbon Dioxide 23 Anion Gap 23 H BUN 7 Creatinine 0.6 L Est GFR ( Amer) > 60 Est GFR (Non-Af Amer) > 60 POC Glucose (mg/dL) 216 H Random Glucose 255 H Hemoglobin A1c Calcium 8.4 L Total Bilirubin 1.3 AST 16 ALT 13 Alkaline Phosphatase 43 Troponin I Total Protein 6.7 Albumin 3.2 L D Globulin 3.5 Albumin/Globulin Ratio 0.9 L Triglycerides Cholesterol LDL Cholesterol Direct HDL Cholesterol Venous Blood Potassium Urine Color Urine Clarity Urine pH Ur Specific [place] Urine Protein Urine Glucose (UA) Urine Ketones Urine Blood Urine Nitrate Urine Bilirubin Urine Urobilinogen Ur Leukocyte Esterase Urine WBC (Auto) Urine RBC (Auto) Ur Squamous Epith Cells Urine Bacteria Urine HCG, Qual Assessment & Plan (1) Pain due to ureteral stent Status: Acute (2) Pyelonephritis Status: Acute - Assessment and Plan (Free Text) Assessment: s/p code sepsis merrem added
[2017-05-10] MEDS: Potassium Chloride 20 mEq ER Tab PO SCH ×2 (12:21→14:36)
--- NOTE | 2017-05-10 12:48 | CP.PCM.HP ---
Past Patient History - Past Medical History & Family History Past Medical History?: Yes - Past Social History Smoking Status: Never Smoked - CARDIAC Hx Cardiac Disorders: Yes Hx Hypercholesterolemia: Yes - PULMONARY Hx Respiratory Disorders: No - NEUROLOGICAL Hx Neurological Disorder: No - HEENT Hx HEENT Problems: No - RENAL Hx Chronic Kidney Disease: Yes Hx Kidney Stones: Yes - ENDOCRINE/METABOLIC Hx Endocrine Disorders: Yes Hx Diabetes Mellitus Type 2: Yes Hx Hypothyroidism: Yes - HEMATOLOGICAL/ONCOLOGICAL Hx Blood Disorders: Yes Hx Anemia: Yes - INTEGUMENTARY Hx Dermatological Problems: No - MUSCULOSKELETAL/RHEUMATOLOGICAL Hx Falls: No - GASTROINTESTINAL Hx Gastrointestinal Disorders: No - GENITOURINARY/GYNECOLOGICAL Hx Genitourinary Disorders: Yes Other/Comment: POLYCYSTIC OVARIES - PSYCHIATRIC Hx Substance Use: No - SURGICAL HISTORY Hx Surgeries: Yes Hx Cholecystectomy: Yes Other/Comment: lithotripsy, insertion of ureteral stent right - ANESTHESIA Hx Anesthesia: Yes Hx Anesthesia Reactions: No Hx Malignant Hyperthermia: No Has any member of the family had a problem w/ anesthesia?: No Meds Allergies/Adverse Reactions: Allergies Allergy/AdvReac Type Severity Reaction Status Date / Time No Known Allergies Allergy Verified 05/09/17 18:08 Physical Exam - Constitutional Appears: Well - Head Exam Head Exam: ATRAUMATIC, NORMAL INSPECTION, NORMOCEPHALIC - Eye Exam Eye Exam: EOMI, Normal appearance, PERRL Pupil Exam: NORMAL ACCOMODATION, PERRL - ENT Exam ENT Exam: Mucous Membranes Moist, Normal Exam - Neck Exam Neck exam: Positive for: Normal Inspection - Respiratory Exam Respiratory Exam: Decreased Breath Sounds - Cardiovascular Exam Cardiovascular Exam: REGULAR RHYTHM, +S1, +S2 - GI/Abdominal Exam GI & Abdominal Exam: Diminished Bowel Sounds, Soft - Rectal Exam Rectal Exam: Deferred Results - Vital Signs Recent Vital Signs: Last Vital Signs Temp 102.8 F H 05/10/17 09:14 Pulse 135 H 05/10/17 08:01 Resp 20 05/10/17 08:01 BP 96/61 L 05/10/17 08:01 Pulse Ox 97 05/10/17 08:01 - Labs Result Diagrams: 05/10/17 10:45 05/10/17 10:45 Labs: Laboratory Results - last 24 hr 05/09/17 05/09/17 05/09/17 18:49 19:05 19:05 WBC 13.9 H RBC 3.64 L Hgb 10.8 L Hct 31.4 L MCV 86.3 MCH 29.7 MCHC 34.4 RDW 14.1 Plt Count 211 MPV 7.8 Neut % (Auto) 78.1 H Lymph % (Auto) 9.8 L [place] % (Auto) 11.3 H Eos % (Auto) 0.1 Baso % (Auto) 0.7 Neut # (Auto) 10.9 H Lymph # (Auto) 1.4 [place] # (Auto) 1.6 H Eos # (Auto) 0.0 Baso # (Auto) 0.1 Neutrophils % (Manual) 68 Band Neutrophils % 8 H Lymphocytes % (Manual) 10 L Monocytes % (Manual) 14 H Platelet Estimate Normal Large Platelets Present Hypochromasia (manual) Slight Microcytosis (manual) Slight PT 14.8 H INR 1.3 APTT 29 pO2 VBG pH VBG pCO2 VBG HCO3 VBG Total CO2 VBG O2 Sat (Calc) VBG Base Excess VBG Potassium Glucose Lactate Sodium Potassium Chloride Carbon Dioxide Anion Gap BUN Creatinine Est GFR ( Amer) Est GFR (Non-Af Amer) POC Glucose (mg/dL) Random Glucose Hemoglobin A1c Calcium Total Bilirubin AST ALT Alkaline Phosphatase Troponin I Total Protein Albumin Globulin Albumin/Globulin Ratio Triglycerides Cholesterol LDL Cholesterol Direct HDL Cholesterol Venous Blood Potassium Urine Color Luana Urine Clarity Hazy Urine pH 5.0 Ur Specific [place] 1.019 Urine Protein 2+ H Urine Glucose (UA) Normal Urine Ketones Negative Urine Blood 2+ H Urine Nitrate Positive H Urine Bilirubin Negative Urine Urobilinogen 4.0 H Ur Leukocyte Esterase 2+ H Urine WBC (Auto) 238 H Urine RBC (Auto) 224 H Ur Squamous Epith Cells 3 Urine Bacteria Mod H Urine HCG, Qual 05/09/17 05/09/17 05/10/17 19:05 19:27 07:25 WBC RBC Hgb Hct MCV MCH MCHC RDW Plt Count MPV Neut % (Auto) Lymph % (Auto) [place] % (Auto) Eos % (Auto) Baso % (Auto) Neut # (Auto) Lymph # (Auto) [place] # (Auto) Eos # (Auto) Baso # (Auto) Neutrophils % (Manual) Band Neutrophils % Lymphocytes % (Manual) Monocytes % (Manual) Platelet Estimate Large Platelets Hypochromasia (manual) Microcytosis (manual) PT INR APTT pO2 VBG pH VBG pCO2 VBG HCO3 VBG Total CO2 VBG O2 Sat (Calc) VBG Base Excess VBG Potassium Glucose Lactate Sodium 142 Potassium 3.4 L Chloride 95 L Carbon Dioxide 22 Anion Gap 28 H BUN 6 L Creatinine 0.6 L Est GFR ( Amer) > 60 Est GFR (Non-Af Amer) > 60 POC Glucose (mg/dL) 233 H Random Glucose 258 H Hemoglobin A1c Calcium 9.2 Total Bilirubin 1.8 H AST 19 ALT 17 Alkaline Phosphatase 64 Troponin I < 0.0120 Total Protein 9.3 H Albumin 4.3 Globulin 5.0 H Albumin/Globulin Ratio 0.8 L Triglycerides Cholesterol LDL Cholesterol Direct HDL Cholesterol Venous Blood Potassium Urine Color Urine Clarity Urine pH Ur Specific [place] Urine Protein Urine Glucose (UA) Urine Ketones Urine Blood Urine Nitrate Urine Bilirubin Urine Urobilinogen Ur Leukocyte Esterase Urine WBC (Auto) Urine RBC (Auto) Ur Squamous Epith Cells Urine Bacteria Urine HCG, Qual Negative 05/10/17 05/10/17 05/10/17 09:50 10:45 10:45 WBC RBC Hgb Hct MCV MCH MCHC RDW Plt Count MPV Neut % (Auto) Lymph % (Auto) [place] % (Auto) Eos % (Auto) Baso % (Auto) Neut # (Auto) Lymph # (Auto) [place] # (Auto) Eos # (Auto) Baso # (Auto) Neutrophils % (Manual) Band Neutrophils % Lymphocytes % (Manual) Monocytes % (Manual) Platelet Estimate Large Platelets Hypochromasia (manual) Microcytosis (manual) PT INR APTT pO2 47 VBG pH 7.48 H VBG pCO2 33 L VBG HCO3 25.9 VBG Total CO2 25.6 VBG O2 Sat (Calc) 89.1 H VBG Base Excess 1.6 VBG Potassium 3.3 L Glucose 278 H Lactate 3.2 H Sodium 139.0 Potassium Chloride 108.0 H Carbon Dioxide Anion Gap BUN Creatinine Est GFR ( Amer) Est GFR (Non-Af Amer) POC Glucose (mg/dL) Random Glucose Hemoglobin A1c 4.6 Calcium Total Bilirubin AST ALT Alkaline Phosphatase Troponin I Total Protein Albumin Globulin Albumin/Globulin Ratio Triglycerides 496 H Cholesterol 133 LDL Cholesterol Direct < 30 HDL Cholesterol 14 L Venous Blood Potassium 3.3 L Urine Color Urine Clarity Urine pH Ur Specific [place] Urine Protein Urine Glucose (UA) Urine Ketones Urine Blood Urine Nitrate Urine Bilirubin Urine Urobilinogen Ur Leukocyte Esterase Urine WBC (Auto) Urine RBC (Auto) Ur Squamous Epith Cells Urine Bacteria Urine HCG, Qual 05/10/17 05/10/17 05/10/17 10:45 10:45 11:13 WBC 10.7 RBC 2.85 L Hgb 8.6 L D Hct 24.4 L MCV 85.6 MCH 30.0 MCHC 35.0 RDW 13.8 Plt Count 173 MPV 7.7 Neut % (Auto) 74.7 Lymph % (Auto) 12.7 L [place] % (Auto) 12.1 H Eos % (Auto) 0.2 Baso % (Auto) 0.3 Neut # (Auto) 8.0 H Lymph # (Auto) 1.4 [place] # (Auto) 1.3 H Eos # (Auto) 0.0 Baso # (Auto) 0.0 Neutrophils % (Manual) Band Neutrophils % Lymphocytes % (Manual) Monocytes % (Manual) Platelet Estimate Large Platelets Hypochromasia (manual) Microcytosis (manual) PT INR APTT pO2 VBG pH VBG pCO2 VBG HCO3 VBG Total CO2 VBG O2 Sat (Calc) VBG Base Excess VBG Potassium Glucose Lactate Sodium 143 Potassium 3.4 L Chloride 101 Carbon Dioxide 23 Anion Gap 23 H BUN 7 Creatinine 0.6 L Est GFR ( Amer) > 60 Est GFR (Non-Af Amer) > 60 POC Glucose (mg/dL) 216 H Random Glucose 255 H Hemoglobin A1c Calcium 8.4 L Total Bilirubin 1.3 AST 16 ALT 13 Alkaline Phosphatase 43 Troponin I Total Protein 6.7 Albumin 3.2 L D Globulin 3.5 Albumin/Globulin Ratio 0.9 L Triglycerides Cholesterol LDL Cholesterol Direct HDL Cholesterol Venous Blood Potassium Urine Color Urine Clarity Urine pH Ur Specific [place] Urine Protein Urine Glucose (UA) Urine Ketones Urine Blood Urine Nitrate Urine Bilirubin Urine Urobilinogen Ur Leukocyte Esterase Urine WBC (Auto) Urine RBC (Auto) Ur Squamous Epith Cells Urine Bacteria Urine HCG, Qual
[2017-05-10] MEDS: Ciprofloxacin 400mg/200ml D5W 400 MG/200 ML BAG IVPB SCH ×2 (13:53→22:15)
[2017-05-10] MEDS ORDERED: Meropenem IV 1 gm in NS 50 ML IVPB SCH (14:00)
--- NOTE | 2017-05-10 14:14 | CT ---
PROCEDURE: CT Abdomen and Pelvis without intravenous contrast HISTORY: sepsis COMPARISON: None. TECHNIQUE: Without contrast.. Contrast Dose: 0 Radiation dose: Total exam DLP = Total exam DLP = 472.10 mGy-cm. This CT exam was performed using one or more of the following dose reduction techniques: Automated exposure control, adjustment of the mA and/or kV according to patient size, and/or use of iterative reconstruction technique. FINDINGS: LOWER THORAX: Unremarkable. LIVER: Markedly enlarged. The liver measures approximately 26 cm craniocaudal. Diffusely diminished attenuation consistent with fatty infiltration. Smooth contour. No mass. No biliary ductal dilatation. GALLBLADDER AND BILE DUCTS: Status post cholecystectomy. PANCREAS: Unremarkable. No gross lesion or ductal dilatation. SPLEEN: Splenomegaly. The spleen measures approximately 16.4 cm in greatest dimension. No focal mass. ADRENALS: Unremarkable. No mass. KIDNEYS AND URETERS: Right ureteral stent. Multiple small right lower pole renal calculi. Mild right hydronephrosis. Multiple small nonobstructing left upper pole renal calculi. There is a dominant 8 mm left upper pole nonobstructing calculus. There is a small amount of gas noted in the right renal pelvis and in the proximal right ureter, possibly secondary to instrumentation. There is no evidence of renal abscess. There is a 1.6 cm mid left renal cortical cyst. This measures 1 Hounsfield unit attenuation. VASCULATURE: Unremarkable. No aortic aneurysm. BOWEL: Unremarkable. No obstruction. No gross mural thickening. APPENDIX: Unremarkable. Normal appendix. PERITONEUM: Minimal ascites in pelvis. No pneumoperitoneum. LYMPH NODES: Unremarkable. No enlarged lymph nodes. BLADDER: Nondistended REPRODUCTIVE: Unremarkable uterus BONES: No acute fracture. OTHER FINDINGS: None. IMPRESSION: Right ureteral stent. Mild right hydronephrosis. Bilateral nonobstructing renal calculi as described. Hepatosplenomegaly. Diffuse fatty infiltration of the liver. Status post cholecystectomy. Minimal ascites.
--- NOTE | 2017-05-10 14:29 | RAD ---
PROCEDURE: Radiographs of the chest and abdomen (obstructive series) HISTORY: Stent placement. COMPARISON: Comparison made with prior abdominal radiographs 04/26/2017. TECHNIQUE: AP radiograph of the chest, with upright and supine radiographs of the abdomen. FINDINGS: CHEST: Lungs: Clear. Cardiovascular: Normal size heart. No pulmonary vascular congestion. Pleura: No pleural fluid. No pneumothorax. Other findings: None. ABDOMEN AND PELVIS: Bowel: Nonobstructive/nonspecific bowel gas pattern. . Free air: None. Bones: Unremarkable. Other findings: In situ right ureteral stent. . Suspect small calculi mid-lower pole right kidney. Re- demonstrated is a small approximately 5.7 mm elliptical shaped calcification overlying the left abdomen possibly within the left kidney. Clinical correlation recommended. Metallic clips right upper quadrant of the abdomen consistent prior cholecystectomy. IMPRESSION: No acute cardiopulmonary disease. In situ right ureteral stent. Small left renal calculus.
[2017-05-10] MEDS ORDERED: Lactated Ringer's 1,000 ML IV ONE ×2 (14:39→16:26)
--- NOTE | 2017-05-10 14:41 | PCM.SEPTIC ---
Sepsis Progress Note - Reassessment Type Date of Evaluation: 05/10/17 Time of Evaluation: 14:40 Reassessment Type: Non-invasive reassessment - Non Invasive Reassessment Were the most recent vital sign reviewed: Yes Vital Sign (Latest): Temp Pulse Resp BP Pulse Ox 102.8 F H 135 H 20 96/61 L 97 05/10/17 09:14 05/10/17 08:01 05/10/17 08:01 05/10/17 08:01 05/10/17 08:01 Cardiovascular: Yes: Tachycardia Respiratory: Yes: Normal Breath Sounds Capillary Refill: Normal (Less than 2 sec) Pulses: Normal Radial, Normal Dorsalis Pedis, Normal Posterior Tibialis Skin: Warm, Dry - Invasive Reassessment (complete 2 of 4) Was a Central Venous Pressure Measurement obtained within 6 Hours after the presentation of septic shock: No Was a central venous oxygen measurement obtained within 6 hours after the presentation of septic shock: No Was a bedside cardiovascular ultrasound performed within 6 hours after the presentation of septic shock: No Fluid Challenge performed: Yes
[2017-05-10] MEDS: Oxycodone/Acetaminophen 5/325 mg Tab PO PRN ×2 (16:43→22:13)
[2017-05-10] MEDS: Meropenem IV 1 gm in NS 50 ML IVPB SCH (17:11)
[2017-05-10] MEDS: Omega-3-Acid Ethyl Esters 1 GM Cap PO SCH (18:00)
--- NOTE | 2017-05-10 18:22 | PCM.SEPTIC ---
Sepsis Progress Note - Reassessment Type Date of Evaluation: 05/10/17 Time of Evaluation: 18:00 Reassessment Type: Non-invasive reassessment - Non Invasive Reassessment Were the most recent vital sign reviewed: Yes Vital Sign (Latest): Temp Pulse Resp BP Pulse Ox 98.3 F 120 H 20 100/67 97 05/10/17 15:00 05/10/17 15:00 05/10/17 15:00 05/10/17 15:00 05/10/17 15:00 Cardiovascular: Yes: Regular Rate, Rhythm Respiratory: Yes: Normal Breath Sounds Capillary Refill: Normal (Less than 2 sec) Pulses: Normal Radial, Normal Dorsalis Pedis, Normal Posterior Tibialis Skin: Normal Color, Warm, Dry Fluid Challenge performed: Yes
[2017-05-10] MEDS: Lactated Ringer's 1,000 ML IV SCH (18:30)
[2017-05-10] MEDS ORDERED: Potassium Chloride 20 mEq ER Tab PO ONE (20:22)
[2017-05-10 23:06] LABS: HEMOGLOBIN 8.3 g/dL (11.0-16.0); MEAN CORPUSCULAR HEMOGLOBIN 30.2 pg (27.0-31.0); MEAN CORPUSCULAR HGB CONC 34.3 g/dL (33.0-37.0); MEAN PLATELET VOLUME 8.3 fL (7.2-11.7); RBC 2.75 Mil/uL (3.80-5.20); RED CELL DISTRIBUTION WIDTH 13.8 % (11.5-14.5); WHITE BLOOD COUNT 9.8 K/uL (4.8-10.8)
[2017-05-10] MEDS ORDERED: Sodium Chloride 0.9% 500 ML IV ONE (23:47)
[2017-05-11] MEDS: Lactated Ringer's 1,000 ML IV SCH ×5 (00:35→22:19)
[2017-05-11] MEDS: Meropenem IV 1 gm in NS 50 ML IVPB SCH ×3 (01:37→16:17)
[2017-05-11] MEDS: Oxycodone/Acetaminophen 5/325 mg Tab PO PRN (05:47)
[2017-05-11] MEDS: Levothyroxine 50 MCG TAB PO SCH (05:49)
[2017-05-11 06:15] LABS: BASO % 0.3 % (0.0-2.0); EOS # 0.1 K/uL (0.0-0.7); EOS % 0.8 % (0.0-4.0); HEMOGLOBIN 8.6 g/dL (11.0-16.0); LYMPH % 19.7 % (20.0-40.0); MEAN CORPUSCULAR HEMOGLOBIN 29.7 pg (27.0-31.0); MEAN CORPUSCULAR HGB CONC 34.1 g/dL (33.0-37.0); MEAN PLATELET VOLUME 7.7 fL (7.2-11.7); MONO # 0.7 K/uL (0.0-0.8); MONO % 7.5 % (0.0-10.0); NEUT # 7.2 K/uL (1.8-7.0); NEUT % 71.7 % (50.0-75.0); RBC 2.91 Mil/uL (3.80-5.20); RED CELL DISTRIBUTION WIDTH 13.7 % (11.5-14.5)
[2017-05-11 06:34] LABS: ALB/GLOB RATIO 0.9 (1.0-2.1); ALBUMIN 3.6 g/dL (3.5-5.0); ALT/SGPT < 6 U/L (9-52); AST/SGOT 16 U/L (14-36); BLOOD UREA NITROGEN 5 mg/dL (7-17); CALCIUM 8.9 mg/dl (8.6-10.4); GFR AFRICAN-AMERICAN > 60; GFR NON-AFRICAN AMERICAN > 60
--- NOTE | 2017-05-11 07:22 | CP.PCM.PN ---
Subjective - Date & Time of Evaluation Date of Evaluation: 05/10/17 Time of Evaluation: 11:00 - Subjective Subjective: Patient was seen and examined at bedside in the evening for tachycardia. B/P 112 /71 ; HR 150 Patient was nauseated and a temperature of 101.3. Patient was given Zofran and ceased vomiting. Patient was given Tylenol and 500ml bolus of NS. Patient should be reevaluated for the possibility of the removal of the renal stent. PMD was called and did not answer to notify about patient's tachycardia. Objective - Vital Signs/Intake and Output Vital Signs (last 24 hours): Temp Pulse Resp BP Pulse Ox 98.8 F 113 H 20 112/71 96 05/11/17 05:40 05/11/17 04:45 05/10/17 23:09 05/10/17 23:09 05/10/17 23:09 Intake and Output: 05/11/17 05/11/17 06:59 18:59 Intake Total 3525 Balance 3525 - Medications Medications: Current Medications Acetaminophen (Tylenol 325mg Tab) 650 mg PO Q6 PRN PRN Reason: Fever >100.4 F Last Admin: 05/10/17 23:54 Dose: 650 mg Dextrose (Dextrose 50% Inj) 0 ml IV STAT PRN; Protocol PRN Reason: Hypoglycemia Protocol Dextrose (Glutose 15) 0 gm PO ONCE PRN; Protocol PRN Reason: Hypoglycemia Protocol Enoxaparin Sodium (Lovenox) 40 mg SC DAILY [facility] Gemfibrozil (Lopid) 600 mg PO BID [facility] Last Admin: 05/10/17 18:00 Dose: 600 mg Gemfibrozil (Lopid) 600 mg PO BID [facility] Glucagon (Glucagen Diagnostic Kit) 0 mg IM STAT PRN; Protocol PRN Reason: Hypoglycemia Protocol Ciprofloxacin (Cipro 400mg/200ml Dsw) 400 mg in 200 mls @ 133 mls/hr IVPB Q12H [facility] PRN Reason: Protocol Last Admin: 05/10/17 22:15 Dose: 133 mls/hr Dextrose (Dextrose 5% In Water 1000 Ml) 1,000 mls @ 0 mls/hr IV .Q0M PRN; Protocol; Per Protocol PRN Reason: Hypoglycemia Protocol Meropenem (Merrem Iv 1 Gm Premix) 50 mls @ 100 mls/hr IVPB Q8H [facility] PRN Reason: Protocol Last Admin: 05/11/17 01:37 Dose: 100 mls/hr Lactated Ringer's (Lactated Ringer's) 1,000 mls @ 175 mls/hr IV .Q5H43M [facility] Last Admin: 05/11/17 00:35 Dose: 175 mls/hr Insulin Aspart (Novolog) 0 unit SC ACHS [facility] PRN Reason: Protocol Last Admin: 05/10/17 22:07 Dose: Not Given Levothyroxine Sodium (Synthroid) 50 mcg PO DAILY@0630 [facility] Last Admin: 05/11/17 05:49 Dose: 50 mcg Metformin HCl (Glucophage) 500 mg PO BID [facility] Last Admin: 05/10/17 18:00 Dose: 500 mg Metformin HCl (Glucophage) 500 mg PO BID [facility] [id number] Ethyl Esters (Lovaza) 1 gm PO BID [facility] Last Admin: 05/10/17 18:00 Dose: 1 gm Oxycodone/Acetaminophen (Percocet 5/325 Mg Tab) 1 tab PO Q6H PRN PRN Reason: pain Stop: 05/12/17 22:55 Last Admin: 05/11/17 05:47 Dose: 1 tab Pantoprazole Sodium (Protonix Ec Tab) 40 mg PO DAILY [facility] Last Admin: 05/10/17 10:16 Dose: 40 mg Pneumococcal Polyvalent Vaccine (Pneumovax 23 Vaccine) 0.5 ml IM .ONCE ONE Stop: 05/11/17 10:01 - Labs Labs: 05/11/17 06:08 05/11/17 06:08 PT 14.8 SECONDS (9.7-12.2) H 05/09/17 19:05 INR 1.3 05/09/17 19:05 APTT 29 SECONDS (21-34) 05/09/17 19:05
[2017-05-11] MEDS: (Novolog) Insulin Aspart, Recombinant 100 u/ml 10 ml vial SC SCH ×4 (08:45→21:01)
--- NOTE | 2017-05-11 09:37 | CP.PCM.PN ---
Subjective - Date & Time of Evaluation Date of Evaluation: 05/11/17 Time of Evaluation: 09:37 - Subjective Subjective: Progress Note for Dr. Pino's Service Pt seen and examined at bedside. She complains of headache mostly but does admit to some abdominal/flank discomfort as well. She denies dysuria. She was mildly febrile overnight as per nursing- 100.4. No other acute events reported. Objective - Vital Signs/Intake and Output Vital Signs (last 24 hours): Temp Pulse Resp BP Pulse Ox 99.6 F 120 H 20 103/67 96 05/11/17 08:00 05/11/17 07:00 05/11/17 07:00 05/11/17 07:00 05/11/17 07:00 Intake and Output: 05/11/17 05/11/17 06:59 18:59 Intake Total 5360 Balance 5360 - Medications Medications: Current Medications Acetaminophen (Tylenol 325mg Tab) 650 mg PO Q6 PRN PRN Reason: Fever >100.4 F Last Admin: 05/10/17 23:54 Dose: 650 mg Dextrose (Dextrose 50% Inj) 0 ml IV STAT PRN; Protocol PRN Reason: Hypoglycemia Protocol Dextrose (Glutose 15) 0 gm PO ONCE PRN; Protocol PRN Reason: Hypoglycemia Protocol Enoxaparin Sodium (Lovenox) 40 mg SC DAILY [facility] Gemfibrozil (Lopid) 600 mg PO BID [facility] Glucagon (Glucagen Diagnostic Kit) 0 mg IM STAT PRN; Protocol PRN Reason: Hypoglycemia Protocol Ciprofloxacin (Cipro 400mg/200ml Dsw) 400 mg in 200 mls @ 133 mls/hr IVPB Q12H [facility] PRN Reason: Protocol Last Admin: 05/10/17 22:15 Dose: 133 mls/hr Dextrose (Dextrose 5% In Water 1000 Ml) 1,000 mls @ 0 mls/hr IV .Q0M PRN; Protocol; Per Protocol PRN Reason: Hypoglycemia Protocol Meropenem (Merrem Iv 1 Gm Premix) 50 mls @ 100 mls/hr IVPB Q8H [facility] PRN Reason: Protocol Last Admin: 05/11/17 08:45 Dose: 100 mls/hr Lactated Ringer's (Lactated Ringer's) 1,000 mls @ 175 mls/hr IV .Q5H43M [facility] Last Admin: 05/11/17 06:30 Dose: 175 mls/hr Insulin Aspart (Novolog) 0 unit SC ACHS [facility] PRN Reason: Protocol Last Admin: 05/11/17 08:45 Dose: 1 unit Levothyroxine Sodium (Synthroid) 50 mcg PO DAILY@0630 [facility] Last Admin: 05/11/17 05:49 Dose: 50 mcg Metformin HCl (Glucophage) 500 mg PO BID [facility] [id number] Ethyl Esters (Lovaza) 1 gm PO BID [facility] Last Admin: 05/10/17 18:00 Dose: 1 gm Oxycodone/Acetaminophen (Percocet 5/325 Mg Tab) 1 tab PO Q6H PRN PRN Reason: pain Stop: 05/12/17 22:55 Last Admin: 05/11/17 05:47 Dose: 1 tab Pantoprazole Sodium (Protonix Ec Tab) 40 mg PO DAILY [facility] Last Admin: 05/10/17 10:16 Dose: 40 mg Pneumococcal Polyvalent Vaccine (Pneumovax 23 Vaccine) 0.5 ml IM .ONCE ONE Stop: 05/12/17 10:01 - Labs Labs: 05/11/17 06:08 05/11/17 06:08 PT 14.8 SECONDS (9.7-12.2) H 05/09/17 19:05 INR 1.3 05/09/17 19:05 APTT 29 SECONDS (21-34) 05/09/17 19:05 - Constitutional Appears: No Acute Distress - Head Exam Head Exam: ATRAUMATIC, NORMOCEPHALIC - Eye Exam Eye Exam: EOMI - ENT Exam ENT Exam: Mucous Membranes Moist - Respiratory Exam Respiratory Exam: Clear to Ausculation Bilateral, NORMAL BREATHING PATTERN - Cardiovascular Exam Cardiovascular Exam: REGULAR RHYTHM, +S1, +S2 - GI/Abdominal Exam GI & Abdominal Exam: Soft, Tenderness (mildly). absent: Guarding - Neurological Exam Neurological Exam: Alert, Awake, Oriented x3 - Psychiatric Exam Psychiatric exam: Normal Affect, Normal Mood - Skin Skin Exam: Dry, Warm Assessment and Plan - Assessment and Plan (Free Text) Plan: Sepsis secondary to pyelonephritis Lactate 3.2; Tmax 102.7, Tachy @ >130 bpm 05/11/17 Tmax overnight 102.7 with persistent tachycardia 100-120 bpm Consult placed to ID- Dr. Landa- jaylon appreciated STAT Gentamycin 80mg IV x ONCE 05/10/17 Merrem 500mg Q8H 05/10/17 Cipro 400mg IV q12hr 05/09/17 Lactate 3.2, then 3.2, then 3.1 UA: Nitrate positive, LE 2+, WBC 238, Mod bacteria HCG negative Blood culture: gram negative dawna Urine culture: E. Coli - sensitive to Merrem CT A/P (05/10/17): Right ureteral stent. Mild right hydronephrosis. B/l non- obstructing renal calculi as described. Hepatosplenomegaly. Diffuse fatty infiltration of the liver. S/p cholecystectomy. Minimal ascites. LR @ 175cc/hr Tylenol 650mg PO Q6H PRN fever/mild pain Percocet 5/325 mg PO Q6H PRN moderate pain Anemia- stable Decreased from 10.8 to 8.6- remaining at 8.6 Pt on rapid fluids Pt denies lev hematuria, hematochezia Fecal occult x 3- negative Type and screen complete Consent for Blood complete Leukocytosis w bandemia Leukocytosis and Bands resolved WBC 10 05/11/17 Hypokalemia- resolved K 3.4, repleted monitor Elevated T bili- resolved 1.8 on initial labs Normal on more recent labs Elevated triglycerides/Low HDL TG 496 Started Lovaza 1 gm PO BID 05/10/17 Continue Gemfibrozil 600mg PO BID Lipid panel Total cholesterol 133 LDL <30 HDL 14 Triglycerides 496 Hx of ureteral stones Dr. Whiteside, Urology healthcare economics consultant, help appreciated Recent lithotripsy Right ureteral stent placed 04/28/17 Xr ABD (05/10/17): Stent remains in appropriate position. CT A/P (05/10/17): Right ureteral stent. Mild right hydronephrosis. B/l non- obstructing renal calculi as described. Hepatosplenomegaly. Diffuse fatty infiltration of the liver. S/p cholecystectomy. Minimal ascites. DM-II Metformin 500mg PO BID [facility] Accuchecks Hypoglycemia protocol A1c 4.6 Lipid panel Total cholesterol 133 LDL <30 HDL 14 Triglycerides 496 Hypothyroidism 50mcg PO Daily TSH 1.26 Free t4 1.30 Prophylaxis SCDs Protonix 40mg PO Daily Lovenox 40mg SC daily Case discussed with Dr. Pino All medical management per Dr. Pino
[2017-05-11] MEDS ORDERED: Pneumococcal 23-Valent Vaccine IM ONE (10:00)
[2017-05-11] MEDS ORDERED: Levothyroxine 50 MCG TAB PO SCH (10:00)
--- NOTE | 2017-05-11 10:51 | CP.PCM.PN ---
Subjective - Date & Time of Evaluation Date of Evaluation: 05/11/17 Time of Evaluation: 10:00 - Subjective Subjective: iv rx in progress Objective - Vital Signs/Intake and Output Vital Signs (last 24 hours): Temp Pulse Resp BP Pulse Ox 99.6 F 120 H 20 103/67 96 05/11/17 08:00 05/11/17 07:00 05/11/17 07:00 05/11/17 07:00 05/11/17 07:00 Intake and Output: 05/11/17 05/11/17 06:59 18:59 Intake Total 5360 Balance 5360 - Medications Medications: Current Medications Acetaminophen (Tylenol 325mg Tab) 650 mg PO Q6 PRN PRN Reason: Fever >100.4 F Last Admin: 05/10/17 23:54 Dose: 650 mg Dextrose (Dextrose 50% Inj) 0 ml IV STAT PRN; Protocol PRN Reason: Hypoglycemia Protocol Dextrose (Glutose 15) 0 gm PO ONCE PRN; Protocol PRN Reason: Hypoglycemia Protocol Enoxaparin Sodium (Lovenox) 40 mg SC DAILY [facility] Gemfibrozil (Lopid) 600 mg PO BID [facility] Glucagon (Glucagen Diagnostic Kit) 0 mg IM STAT PRN; Protocol PRN Reason: Hypoglycemia Protocol Ciprofloxacin (Cipro 400mg/200ml Dsw) 400 mg in 200 mls @ 133 mls/hr IVPB Q12H [facility] PRN Reason: Protocol Last Admin: 05/10/17 22:15 Dose: 133 mls/hr Dextrose (Dextrose 5% In Water 1000 Ml) 1,000 mls @ 0 mls/hr IV .Q0M PRN; Protocol; Per Protocol PRN Reason: Hypoglycemia Protocol Meropenem (Merrem Iv 1 Gm Premix) 50 mls @ 100 mls/hr IVPB Q8H [facility] PRN Reason: Protocol Last Admin: 05/11/17 08:45 Dose: 100 mls/hr Lactated Ringer's (Lactated Ringer's) 1,000 mls @ 175 mls/hr IV .Q5H43M [facility] Last Admin: 05/11/17 06:30 Dose: 175 mls/hr Insulin Aspart (Novolog) 0 unit SC ACHS [facility] PRN Reason: Protocol Last Admin: 05/11/17 08:45 Dose: 1 unit Levothyroxine Sodium (Synthroid) 50 mcg PO DAILY@0630 [facility] Last Admin: 05/11/17 05:49 Dose: 50 mcg Metformin HCl (Glucophage) 500 mg PO BID [facility] [id number] Ethyl Esters (Lovaza) 1 gm PO BID [facility] Last Admin: 05/10/17 18:00 Dose: 1 gm Oxycodone/Acetaminophen (Percocet 5/325 Mg Tab) 1 tab PO Q6H PRN PRN Reason: pain Stop: 05/12/17 22:55 Last Admin: 05/11/17 05:47 Dose: 1 tab Pantoprazole Sodium (Protonix Ec Tab) 40 mg PO DAILY [facility] Last Admin: 05/10/17 10:16 Dose: 40 mg Pneumococcal Polyvalent Vaccine (Pneumovax 23 Vaccine) 0.5 ml IM .ONCE ONE Stop: 05/12/17 10:01 - Labs Labs: 05/11/17 06:08 05/11/17 06:08 PT 14.8 SECONDS (9.7-12.2) H 05/09/17 19:05 INR 1.3 05/09/17 19:05 APTT 29 SECONDS (21-34) 05/09/17 19:05 - Constitutional Appears: Non-toxic, Chronically Ill - Head Exam Head Exam: NORMOCEPHALIC - Eye Exam Eye Exam: absent: Scleral icterus - ENT Exam ENT Exam: Mucous Membranes Dry - Neck Exam Neck Exam: absent: Lymphadenopathy - Respiratory Exam Respiratory Exam: Decreased Breath Sounds, Clear to Ausculation Bilateral - Cardiovascular Exam Cardiovascular Exam: REGULAR RHYTHM - GI/Abdominal Exam GI & Abdominal Exam: Distended - Rectal Exam Rectal Exam: Deferred Assessment and Plan (1) Pain due to ureteral stent Status: Acute (2) Pyelonephritis Status: Acute
[2017-05-11] MEDS: Omega-3-Acid Ethyl Esters 1 GM Cap PO SCH ×2 (11:00→17:40)
[2017-05-11] MEDS: Pantoprazole 40 mg EC Tab PO SCH (11:00)
[2017-05-11] MEDS: Enoxaparin 40 mg Syringe SC SCH (11:00)
[2017-05-11] MEDS: Ciprofloxacin 400mg/200ml D5W 400 MG/200 ML BAG IVPB SCH ×2 (11:13→22:18)
--- NOTE | 2017-05-11 22:00 | CP.PCM.PN ---
Subjective - Date & Time of Evaluation Date of Evaluation: 05/11/17 Time of Evaluation: 13:20 - Subjective Subjective: clinically same Objective - Vital Signs/Intake and Output Vital Signs (last 24 hours): Temp Pulse Resp BP Pulse Ox 99.7 F H 131 H 20 128/78 98 05/11/17 16:00 05/11/17 16:00 05/11/17 16:00 05/11/17 16:00 05/11/17 16:00 Intake and Output: 05/11/17 05/12/17 18:59 06:59 Intake Total 1600 Balance 1600 - Medications Medications: Current Medications Acetaminophen (Tylenol 325mg Tab) 650 mg PO Q6 PRN PRN Reason: Fever >100.4 F Last Admin: 05/10/17 23:54 Dose: 650 mg Acetaminophen (Tylenol 325mg Tab) 650 mg PO Q6 PRN PRN Reason: Pain, moderate (4-7) Last Admin: 05/11/17 16:15 Dose: 650 mg Dextrose (Dextrose 50% Inj) 0 ml IV STAT PRN; Protocol PRN Reason: Hypoglycemia Protocol Dextrose (Glutose 15) 0 gm PO ONCE PRN; Protocol PRN Reason: Hypoglycemia Protocol Enoxaparin Sodium (Lovenox) 40 mg SC DAILY [facility] Last Admin: 05/11/17 11:00 Dose: 40 mg Gemfibrozil (Lopid) 600 mg PO BID [facility] Last Admin: 05/11/17 17:41 Dose: 600 mg Glucagon (Glucagen Diagnostic Kit) 0 mg IM STAT PRN; Protocol PRN Reason: Hypoglycemia Protocol Ciprofloxacin (Cipro 400mg/200ml Dsw) 400 mg in 200 mls @ 133 mls/hr IVPB Q12H [facility] PRN Reason: Protocol Last Admin: 05/11/17 11:13 Dose: 133 mls/hr Dextrose (Dextrose 5% In Water 1000 Ml) 1,000 mls @ 0 mls/hr IV .Q0M PRN; Protocol; Per Protocol PRN Reason: Hypoglycemia Protocol Meropenem (Merrem Iv 1 Gm Premix) 50 mls @ 100 mls/hr IVPB Q8H [facility] PRN Reason: Protocol Last Admin: 05/11/17 16:17 Dose: 100 mls/hr Lactated Ringer's (Lactated Ringer's) 1,000 mls @ 175 mls/hr IV .Q5H43M [facility] Last Admin: 05/11/17 17:41 Dose: Not Given Gentamicin Sulfate 100 mg/ (Sodium Chloride) 102.5 mls @ 100 mls/hr IVPB Q24H [facility] PRN Reason: Protocol Last Admin: 05/11/17 21:02 Dose: 100 mls/hr Insulin Aspart (Novolog) 0 unit SC ACHS [facility] PRN Reason: Protocol Last Admin: 05/11/17 21:01 Dose: Not Given Levothyroxine Sodium (Synthroid) 50 mcg PO DAILY@0630 [facility] Last Admin: 05/11/17 05:49 Dose: 50 mcg Metformin HCl (Glucophage) 500 mg PO BID [facility] Last Admin: 05/11/17 17:40 Dose: 500 mg Zqrjj-[id number] Ethyl Esters (Lovaza) 1 gm PO BID [facility] Last Admin: 05/11/17 17:40 Dose: 1 gm Ondansetron HCl (Zofran Inj) 4 mg IVP Q6 PRN PRN Reason: Nausea/Vomiting Oxycodone/Acetaminophen (Percocet 5/325 Mg Tab) 1 tab PO Q6H PRN PRN Reason: pain Stop: 05/12/17 22:55 Last Admin: 05/11/17 05:47 Dose: 1 tab Pantoprazole Sodium (Protonix Ec Tab) 40 mg PO DAILY [facility] Last Admin: 05/11/17 11:00 Dose: 40 mg Pneumococcal Polyvalent Vaccine (Pneumovax 23 Vaccine) 0.5 ml IM .ONCE ONE Stop: 05/12/17 10:01 - Labs Labs: 05/11/17 06:08 05/11/17 06:08 PT 14.8 SECONDS (9.7-12.2) H 05/09/17 19:05 INR 1.3 05/09/17 19:05 APTT 29 SECONDS (21-34) 05/09/17 19:05 - Constitutional Appears: Well - Head Exam Head Exam: ATRAUMATIC, NORMAL INSPECTION, NORMOCEPHALIC - Eye Exam Eye Exam: EOMI, Normal appearance, PERRL Pupil Exam: NORMAL ACCOMODATION, PERRL - ENT Exam ENT Exam: Mucous Membranes Moist, Normal Exam - Neck Exam Neck Exam: Full ROM, Normal Inspection. absent: Lymphadenopathy - Respiratory Exam Respiratory Exam: Decreased Breath Sounds - Cardiovascular Exam Cardiovascular Exam: REGULAR RHYTHM, +S1, +S2 - GI/Abdominal Exam GI & Abdominal Exam: Soft, Diminished Bowel Sounds - Rectal Exam Rectal Exam: Deferred
[2017-05-12] MEDS: Lactated Ringer's 1,000 ML IV SCH ×6 (01:17→20:08)
[2017-05-12] MEDS: Meropenem IV 1 gm in NS 50 ML IVPB SCH ×3 (01:20→16:18)
[2017-05-12] MEDS: Levothyroxine 50 MCG TAB PO SCH (06:06)
[2017-05-12 06:15] LABS: BASO % 0.5 % (0.0-2.0); EOS # 0.1 K/uL (0.0-0.7); EOS % 1.2 % (0.0-4.0); HEMOGLOBIN 8.1 g/dL (11.0-16.0); LYMPH # 1.8 K/uL (1.0-4.3); LYMPH % 25.2 % (20.0-40.0); MEAN CELL VOLUME 85.9 fL (81.0-99.0); MEAN CORPUSCULAR HEMOGLOBIN 29.8 pg (27.0-31.0); MEAN CORPUSCULAR HGB CONC 34.7 g/dL (33.0-37.0); MEAN PLATELET VOLUME 7.5 fL (7.2-11.7); MONO # 0.6 K/uL (0.0-0.8); NEUT # 4.5 K/uL (1.8-7.0); NEUT % 64.1 % (50.0-75.0); RBC 2.74 Mil/uL (3.80-5.20); RED CELL DISTRIBUTION WIDTH 13.9 % (11.5-14.5)
[2017-05-12] MEDS: Oxycodone/Acetaminophen 5/325 mg Tab PO PRN (07:01)
[2017-05-12] MEDS: (Novolog) Insulin Aspart, Recombinant 100 u/ml 10 ml vial SC SCH ×4 (07:44→21:34)
[2017-05-12 09:28] LABS: ALB/GLOB RATIO 0.9 (1.0-2.1); ALBUMIN 3.5 g/dL (3.5-5.0); ALT/SGPT < 6 U/L (9-52); AST/SGOT 18 U/L (14-36); BLOOD UREA NITROGEN 7 mg/dL (7-17); CALCIUM 9.1 mg/dl (8.6-10.4); GFR AFRICAN-AMERICAN > 60; GFR NON-AFRICAN AMERICAN > 60
[2017-05-12] MEDS: Enoxaparin 40 mg Syringe SC SCH (09:37)
[2017-05-12] MEDS: Omega-3-Acid Ethyl Esters 1 GM Cap PO SCH ×2 (09:38→17:30)
[2017-05-12] MEDS: Pantoprazole 40 mg EC Tab PO SCH (09:39)
--- NOTE | 2017-05-12 09:46 | CP.PCM.PN ---
Subjective - Date & Time of Evaluation Date of Evaluation: 05/12/17 Time of Evaluation: 12:00 - Subjective Subjective: clinically same Objective - Vital Signs/Intake and Output Vital Signs (last 24 hours): Temp Pulse Resp BP Pulse Ox 100.2 F H 122 H 20 111/75 94 L 05/12/17 07:00 05/12/17 07:30 05/12/17 07:00 05/12/17 07:00 05/12/17 07:00 Intake and Output: 05/12/17 05/12/17 06:59 18:59 Intake Total 2775 Balance 2775 - Medications Medications: Current Medications Acetaminophen (Tylenol 325mg Tab) 650 mg PO Q6 PRN PRN Reason: Fever >100.4 F Last Admin: 05/10/17 23:54 Dose: 650 mg Acetaminophen (Tylenol 325mg Tab) 650 mg PO Q6 PRN PRN Reason: Pain, moderate (4-7) Last Admin: 05/11/17 22:13 Dose: 650 mg Dextrose (Dextrose 50% Inj) 0 ml IV STAT PRN; Protocol PRN Reason: Hypoglycemia Protocol Dextrose (Glutose 15) 0 gm PO ONCE PRN; Protocol PRN Reason: Hypoglycemia Protocol Enoxaparin Sodium (Lovenox) 40 mg SC DAILY [facility] Last Admin: 05/12/17 09:37 Dose: 40 mg Gemfibrozil (Lopid) 600 mg PO BID [facility] Last Admin: 05/12/17 09:39 Dose: 600 mg Glucagon (Glucagen Diagnostic Kit) 0 mg IM STAT PRN; Protocol PRN Reason: Hypoglycemia Protocol Ciprofloxacin (Cipro 400mg/200ml Dsw) 400 mg in 200 mls @ 133 mls/hr IVPB Q12H [facility] PRN Reason: Protocol Last Admin: 05/11/17 22:18 Dose: 133 mls/hr Dextrose (Dextrose 5% In Water 1000 Ml) 1,000 mls @ 0 mls/hr IV .Q0M PRN; Protocol; Per Protocol PRN Reason: Hypoglycemia Protocol Meropenem (Merrem Iv 1 Gm Premix) 50 mls @ 100 mls/hr IVPB Q8H [facility] PRN Reason: Protocol Last Admin: 05/12/17 09:10 Dose: 100 mls/hr Lactated Ringer's (Lactated Ringer's) 1,000 mls @ 175 mls/hr IV .Q5H43M [facility] Last Admin: 05/12/17 09:07 Dose: 175 mls/hr Gentamicin Sulfate 100 mg/ (Sodium Chloride) 102.5 mls @ 100 mls/hr IVPB Q24H [facility] PRN Reason: Protocol Last Admin: 05/11/17 21:02 Dose: 100 mls/hr Insulin Aspart (Novolog) 0 unit SC ACHS [facility] PRN Reason: Protocol Last Admin: 05/12/17 07:44 Dose: Not Given Levothyroxine Sodium (Synthroid) 50 mcg PO DAILY@0630 [facility] Last Admin: 05/12/17 06:06 Dose: 50 mcg Metformin HCl (Glucophage) 500 mg PO BID [facility] Last Admin: 05/12/17 09:38 Dose: 500 mg [id number] Ethyl Esters (Lovaza) 1 gm PO BID [facility] Last Admin: 05/12/17 09:38 Dose: 1 gm Ondansetron HCl (Zofran Inj) 4 mg IVP Q6 PRN PRN Reason: Nausea/Vomiting Oxycodone/Acetaminophen (Percocet 5/325 Mg Tab) 1 tab PO Q6H PRN PRN Reason: pain Stop: 05/12/17 22:55 Last Admin: 05/12/17 07:01 Dose: 1 tab Pantoprazole Sodium (Protonix Ec Tab) 40 mg PO DAILY [facility] Last Admin: 05/12/17 09:39 Dose: 40 mg Pneumococcal Polyvalent Vaccine (Pneumovax 23 Vaccine) 0.5 ml IM .ONCE ONE Stop: 05/12/17 10:01 - Labs Labs: 05/12/17 06:03 05/12/17 06:03 PT 14.8 SECONDS (9.7-12.2) H 05/09/17 19:05 INR 1.3 05/09/17 19:05 APTT 29 SECONDS (21-34) 05/09/17 19:05 - Constitutional Appears: Well - Head Exam Head Exam: ATRAUMATIC, NORMAL INSPECTION, NORMOCEPHALIC - Eye Exam Eye Exam: EOMI, Normal appearance, PERRL Pupil Exam: NORMAL ACCOMODATION, PERRL - ENT Exam ENT Exam: Mucous Membranes Moist, Normal Exam - Neck Exam Neck Exam: Full ROM, Normal Inspection. absent: Lymphadenopathy - Respiratory Exam Respiratory Exam: Decreased Breath Sounds - Cardiovascular Exam Cardiovascular Exam: REGULAR RHYTHM, +S1, +S2 - GI/Abdominal Exam GI & Abdominal Exam: Soft, Diminished Bowel Sounds - Rectal Exam Rectal Exam: Deferred
[2017-05-12] MEDS ORDERED: Pneumococcal 23-Valent Vaccine IM ONE (10:00)
[2017-05-12] MEDS: Ciprofloxacin 400mg/200ml D5W 400 MG/200 ML BAG IVPB SCH ×2 (11:10→22:09)
--- NOTE | 2017-05-12 13:35 | CP.PCM.PN ---
Subjective - Date & Time of Evaluation Date of Evaluation: 05/12/17 Time of Evaluation: 11:00 - Subjective Subjective: Progress Note for Dr. Pino Patient seen and examined at bedside. She complains of headache but refuses to take Percocet because it gives her nightmares. She also reports to have nausea but it was resolved with zofran. Otherwise patient states she is feeling better than when she first came in. Objective - Vital Signs/Intake and Output Vital Signs (last 24 hours): Temp Pulse Resp BP Pulse Ox 98.9 F 98 H 20 111/75 94 L 05/12/17 11:16 05/12/17 12:50 05/12/17 07:00 05/12/17 07:00 05/12/17 07:00 Intake and Output: 05/12/17 05/12/17 06:59 18:59 Intake Total 2775 Balance 2775 - Medications Medications: Current Medications Acetaminophen (Tylenol 325mg Tab) 650 mg PO Q6 PRN PRN Reason: Fever >100.4 F Last Admin: 05/10/17 23:54 Dose: 650 mg Acetaminophen (Tylenol 325mg Tab) 650 mg PO Q6 PRN PRN Reason: Pain, moderate (4-7) Last Admin: 05/12/17 12:10 Dose: 650 mg Dextrose (Dextrose 50% Inj) 0 ml IV STAT PRN; Protocol PRN Reason: Hypoglycemia Protocol Dextrose (Glutose 15) 0 gm PO ONCE PRN; Protocol PRN Reason: Hypoglycemia Protocol Enoxaparin Sodium (Lovenox) 40 mg SC DAILY [facility] Last Admin: 05/12/17 09:37 Dose: 40 mg Gemfibrozil (Lopid) 600 mg PO BID [facility] Last Admin: 05/12/17 09:39 Dose: 600 mg Glucagon (Glucagen Diagnostic Kit) 0 mg IM STAT PRN; Protocol PRN Reason: Hypoglycemia Protocol Ciprofloxacin (Cipro 400mg/200ml Dsw) 400 mg in 200 mls @ 133 mls/hr IVPB Q12H [facility] PRN Reason: Protocol Last Admin: 05/12/17 11:10 Dose: 133 mls/hr Dextrose (Dextrose 5% In Water 1000 Ml) 1,000 mls @ 0 mls/hr IV .Q0M PRN; Protocol; Per Protocol PRN Reason: Hypoglycemia Protocol Meropenem (Merrem Iv 1 Gm Premix) 50 mls @ 100 mls/hr IVPB Q8H [facility] PRN Reason: Protocol Last Admin: 05/12/17 09:10 Dose: 100 mls/hr Gentamicin Sulfate 100 mg/ (Sodium Chloride) 102.5 mls @ 100 mls/hr IVPB Q24H [facility] PRN Reason: Protocol Last Admin: 05/11/17 21:02 Dose: 100 mls/hr Lactated Ringer's (Lactated Ringer's) 1,000 mls @ 100 mls/hr IV .Q10H [facility] Last Admin: 05/12/17 12:12 Dose: 100 mls/hr Insulin Aspart (Novolog) 0 unit SC ACHS [facility] PRN Reason: Protocol Last Admin: 05/12/17 12:12 Dose: 1 unit Levothyroxine Sodium (Synthroid) 50 mcg PO DAILY@0630 [facility] Last Admin: 05/12/17 06:06 Dose: 50 mcg Metformin HCl (Glucophage) 500 mg PO BID [facility] Last Admin: 05/12/17 09:38 Dose: 500 mg Vxlag-3-Ttrp Ethyl Esters (Lovaza) 1 gm PO BID [facility] Last Admin: 05/12/17 09:38 Dose: 1 gm Ondansetron HCl (Zofran Inj) 4 mg IVP Q6 PRN PRN Reason: Nausea/Vomiting Oxycodone/Acetaminophen (Percocet 5/325 Mg Tab) 1 tab PO Q6H PRN PRN Reason: pain Stop: 05/12/17 22:55 Last Admin: 05/12/17 07:01 Dose: 1 tab Pantoprazole Sodium (Protonix Ec Tab) 40 mg PO DAILY [facility] Last Admin: 05/12/17 09:39 Dose: 40 mg - Labs Labs: 05/12/17 06:03 05/12/17 06:03 PT 14.8 SECONDS (9.7-12.2) H 05/09/17 19:05 INR 1.3 05/09/17 19:05 APTT 29 SECONDS (21-34) 05/09/17 19:05 - Additional Findings Additional findings: - Constitutional Appears: No Acute Distress, Older than stated age - Head Exam Head Exam: ATRAUMATIC, NORMOCEPHALIC - Eye Exam Eye Exam: EOMI - ENT Exam ENT Exam: Mucous Membranes Moist - Respiratory Exam Respiratory Exam: Clear to Ausculation Bilateral, NORMAL BREATHING PATTERN - Cardiovascular Exam Cardiovascular Exam: REGULAR RHYTHM, +S1, +S2 - GI/Abdominal Exam GI & Abdominal Exam: Soft, Tenderness (mildly). absent: Guarding - Neurological Exam Neurological Exam: Alert, Awake, Oriented x3 - Psychiatric Exam Psychiatric exam: Normal Affect, Normal Mood - Skin Skin Exam: Dry, Warm Assessment and Plan - Assessment and Plan (Free Text) Assessment: Sepsis secondary to pyelonephritis Lactate 3.2 on 05/10/17; Overnight Tmax 100.4, Tachy @ 122 bpm Consult placed to ID- Dr. Landa- jaylon appreciated Gentamycin 80mg IV x ONCE 05/10/17 Merrem 500mg Q8H 05/10/17 Cipro 400mg IV q12hr 05/09/17 Lactate 3.2, then 3.2, then 3.1 UA 05/09/17: Nitrate positive, LE 2+, WBC 238, Mod bacteria HCG negative Blood culture: E. coli - sensitive to Merrem Urine culture: E. Coli - sensitive to Merrem CT A/P (05/10/17): Right ureteral stent. Mild right hydronephrosis. B/l non- obstructing renal calculi as described. Hepatosplenomegaly. Diffuse fatty infiltration of the liver. S/p cholecystectomy. Minimal ascites LR @ 100cc/hr Tylenol 650mg PO Q6H PRN fever/mild pain Percocet 5/325 mg PO Q6H PRN moderate pain Anemia- stable Decreased from 8.6 to 8.1 Decreased fluid to 100ml/hr Pt denies lev hematuria, hematochezia Fecal occult x 3- negative Type and screen complete Consent for Blood complete Leukocytosis w bandemia Leukocytosis and Bands resolved WBC 7 on 05/12/17 Hypokalemia- resolved K 4.1 monitor Elevated T bili- resolved 1.8 on initial labs Normal on more recent labs Elevated triglycerides/Low HDL TG 496 Started Lovaza 1 gm PO BID 05/10/17 Continue Gemfibrozil 600mg PO BID Lipid panel Total cholesterol 133 LDL <30 HDL 14 Triglycerides 496 Hx of ureteral stones Dr. Whiteside, Urology outside sales consultant, help appreciated Recent lithotripsy Right ureteral stent placed 04/28/17 Xr ABD (05/10/17): Stent remains in appropriate position. CT A/P (05/10/17): Right ureteral stent. Mild right hydronephrosis. B/l non- obstructing renal calculi as described. Hepatosplenomegaly. Diffuse fatty infiltration of the liver. S/p cholecystectomy. Minimal ascites. DM-II Metformin 500mg PO BID [facility] Accuchecks Hypoglycemia protocol A1c 4.6 Lipid panel Total cholesterol 133 LDL <30 HDL 14 Triglycerides 496 Hypothyroidism 50mcg PO Daily TSH 1.26 Free t4 1.30 Prophylaxis SCDs Protonix 40mg PO Daily Lovenox 40mg SC daily Case discussed with Dr. Pino All medical management per Dr. Pino
[2017-05-13] MEDS: Meropenem IV 1 gm in NS 50 ML IVPB SCH ×3 (00:58→17:25)
[2017-05-13] MEDS: Levothyroxine 50 MCG TAB PO SCH (06:32)
[2017-05-13 07:22] LABS: BASO # 0.1 K/uL (0.0-0.2); BASO % 0.6 % (0.0-2.0); EOS # 0.1 K/uL (0.0-0.7); EOS % 1.4 % (0.0-4.0); HEMOGLOBIN 8.6 g/dL (11.0-16.0); LYMPH # 2.1 K/uL (1.0-4.3); LYMPH % 25.2 % (20.0-40.0); MEAN CELL VOLUME 85.3 fL (81.0-99.0); MEAN CORPUSCULAR HEMOGLOBIN 30.1 pg (27.0-31.0); MEAN CORPUSCULAR HGB CONC 35.3 g/dL (33.0-37.0); MEAN PLATELET VOLUME 7.5 fL (7.2-11.7); MONO # 0.7 K/uL (0.0-0.8); MONO % 8.7 % (0.0-10.0); NEUT # 5.2 K/uL (1.8-7.0); NEUT % 64.1 % (50.0-75.0); NRBC % 0.1 % (0.0-2.0); RBC 2.86 Mil/uL (3.80-5.20); RED CELL DISTRIBUTION WIDTH 13.7 % (11.5-14.5); WHITE BLOOD COUNT 8.2 K/uL (4.8-10.8)
[2017-05-13] MEDS: (Novolog) Insulin Aspart, Recombinant 100 u/ml 10 ml vial SC SCH ×4 (08:17→21:55)
[2017-05-13 09:36] LABS: ALB/GLOB RATIO 0.9 (1.0-2.1); ALBUMIN 3.7 g/dL (3.5-5.0); ALT/SGPT 11 U/L (9-52); AST/SGOT 33 U/L (14-36); BLOOD UREA NITROGEN 9 mg/dL (7-17); CALCIUM 9.4 mg/dl (8.6-10.4); GFR AFRICAN-AMERICAN > 60; GFR NON-AFRICAN AMERICAN > 60
[2017-05-13] MEDS: Pantoprazole 40 mg EC Tab PO SCH ×2 (09:43→09:54)
[2017-05-13] MEDS: Omega-3-Acid Ethyl Esters 1 GM Cap PO SCH ×2 (09:43→17:25)
[2017-05-13] MEDS: Enoxaparin 40 mg Syringe SC SCH (09:43)
[2017-05-13] MEDS: Lactated Ringer's 1,000 ML IV SCH ×2 (09:44→18:15)
[2017-05-13] MEDS: Ciprofloxacin 400mg/200ml D5W 400 MG/200 ML BAG IVPB SCH (10:48)
--- NOTE | 2017-05-13 11:37 | CP.PCM.PN ---
Subjective - Date & Time of Evaluation Date of Evaluation: 05/13/17 Time of Evaluation: 11:00 - Subjective Subjective: clinically same Objective - Vital Signs/Intake and Output Vital Signs (last 24 hours): Temp Pulse Resp BP Pulse Ox 98.4 F 93 H 20 107/77 97 05/13/17 08:22 05/13/17 08:22 05/13/17 08:22 05/13/17 08:22 05/13/17 08:22 Intake and Output: 05/13/17 05/13/17 06:59 18:59 Intake Total 2069 Balance 2069 - Medications Medications: Current Medications Acetaminophen (Tylenol 325mg Tab) 650 mg PO Q6 PRN PRN Reason: Fever >100.4 F Last Admin: 05/10/17 23:54 Dose: 650 mg Acetaminophen (Tylenol 325mg Tab) 650 mg PO Q6 PRN PRN Reason: Pain, moderate (4-7) Last Admin: 05/13/17 03:11 Dose: 650 mg Dextrose (Dextrose 50% Inj) 0 ml IV STAT PRN; Protocol PRN Reason: Hypoglycemia Protocol Dextrose (Glutose 15) 0 gm PO ONCE PRN; Protocol PRN Reason: Hypoglycemia Protocol Enoxaparin Sodium (Lovenox) 40 mg SC DAILY [facility] Last Admin: 05/13/17 09:43 Dose: 40 mg Gemfibrozil (Lopid) 600 mg PO BID [facility] Last Admin: 05/13/17 09:43 Dose: 600 mg Glucagon (Glucagen Diagnostic Kit) 0 mg IM STAT PRN; Protocol PRN Reason: Hypoglycemia Protocol Ciprofloxacin (Cipro 400mg/200ml Dsw) 400 mg in 200 mls @ 133 mls/hr IVPB Q12H [facility] PRN Reason: Protocol Last Admin: 05/13/17 10:48 Dose: 133 mls/hr Dextrose (Dextrose 5% In Water 1000 Ml) 1,000 mls @ 0 mls/hr IV .Q0M PRN; Protocol; Per Protocol PRN Reason: Hypoglycemia Protocol Meropenem (Merrem Iv 1 Gm Premix) 50 mls @ 100 mls/hr IVPB Q8H [facility] PRN Reason: Protocol Last Admin: 05/13/17 09:44 Dose: 100 mls/hr Gentamicin Sulfate 100 mg/ (Sodium Chloride) 102.5 mls @ 100 mls/hr IVPB Q24H [facility] PRN Reason: Protocol Last Admin: 05/12/17 14:00 Dose: 100 mls/hr Lactated Ringer's (Lactated Ringer's) 1,000 mls @ 100 mls/hr IV .Q10H [facility] Last Admin: 05/13/17 09:44 Dose: 100 mls/hr Insulin Aspart (Novolog) 0 unit SC ACHS [facility] PRN Reason: Protocol Last Admin: 05/13/17 08:17 Dose: Not Given Levothyroxine Sodium (Synthroid) 50 mcg PO DAILY@0630 [facility] Last Admin: 05/13/17 06:32 Dose: 50 mcg Metformin HCl (Glucophage) 500 mg PO BID [facility] Last Admin: 05/13/17 09:43 Dose: 500 mg Fuhfi-0-Bftm Ethyl Esters (Lovaza) 1 gm PO BID [facility] Last Admin: 05/13/17 09:43 Dose: 1 gm Ondansetron HCl (Zofran Inj) 4 mg IVP Q6 PRN PRN Reason: Nausea/Vomiting Pantoprazole Sodium (Protonix Ec Tab) 40 mg PO DAILY [facility] Last Admin: 05/13/17 09:54 Dose: 40 mg - Labs Labs: 05/13/17 07:10 05/13/17 07:10 PT 14.8 SECONDS (9.7-12.2) H 05/09/17 19:05 INR 1.3 05/09/17 19:05 APTT 29 SECONDS (21-34) 05/09/17 19:05 - Constitutional Appears: Well - Head Exam Head Exam: ATRAUMATIC, NORMAL INSPECTION, NORMOCEPHALIC - Eye Exam Eye Exam: EOMI, Normal appearance, PERRL Pupil Exam: NORMAL ACCOMODATION, PERRL - ENT Exam ENT Exam: Mucous Membranes Moist, Normal Exam - Neck Exam Neck Exam: Full ROM, Normal Inspection. absent: Lymphadenopathy - Respiratory Exam Respiratory Exam: Decreased Breath Sounds - Cardiovascular Exam Cardiovascular Exam: REGULAR RHYTHM, +S1, +S2 - GI/Abdominal Exam GI & Abdominal Exam: Soft, Diminished Bowel Sounds - Rectal Exam Rectal Exam: Deferred
--- NOTE | 2017-05-13 18:15 | CP.PCM.PN ---
Subjective - Date & Time of Evaluation Date of Evaluation: 05/13/17 Time of Evaluation: 08:00 - Subjective Subjective: ESBL urine d/c on IV rx follow up 1 week Objective - Vital Signs/Intake and Output Vital Signs (last 24 hours): Temp Pulse Resp BP Pulse Ox 98.3 F 105 H 20 144/72 97 05/13/17 15:20 05/13/17 16:11 05/13/17 15:20 05/13/17 15:20 05/13/17 15:20 Intake and Output: 05/13/17 05/13/17 06:59 18:59 Intake Total 2069 1200 Balance 2069 1200 - Medications Medications: Current Medications Acetaminophen (Tylenol 325mg Tab) 650 mg PO Q6 PRN PRN Reason: Fever >100.4 F Last Admin: 05/13/17 14:19 Dose: 650 mg Acetaminophen (Tylenol 325mg Tab) 650 mg PO Q6 PRN PRN Reason: Pain, moderate (4-7) Last Admin: 05/13/17 03:11 Dose: 650 mg Dextrose (Dextrose 50% Inj) 0 ml IV STAT PRN; Protocol PRN Reason: Hypoglycemia Protocol Dextrose (Glutose 15) 0 gm PO ONCE PRN; Protocol PRN Reason: Hypoglycemia Protocol Enoxaparin Sodium (Lovenox) 40 mg SC DAILY [facility] Last Admin: 05/13/17 09:43 Dose: 40 mg Gemfibrozil (Lopid) 600 mg PO BID [facility] Last Admin: 05/13/17 17:26 Dose: 600 mg Glucagon (Glucagen Diagnostic Kit) 0 mg IM STAT PRN; Protocol PRN Reason: Hypoglycemia Protocol Ciprofloxacin (Cipro 400mg/200ml Dsw) 400 mg in 200 mls @ 133 mls/hr IVPB Q12H [facility] PRN Reason: Protocol Last Admin: 05/13/17 10:48 Dose: 133 mls/hr Dextrose (Dextrose 5% In Water 1000 Ml) 1,000 mls @ 0 mls/hr IV .Q0M PRN; Protocol; Per Protocol PRN Reason: Hypoglycemia Protocol Meropenem (Merrem Iv 1 Gm Premix) 50 mls @ 100 mls/hr IVPB Q8H [facility] PRN Reason: Protocol Last Admin: 05/13/17 17:25 Dose: 100 mls/hr Gentamicin Sulfate 100 mg/ (Sodium Chloride) 102.5 mls @ 100 mls/hr IVPB Q24H [facility] PRN Reason: Protocol Last Admin: 05/13/17 14:20 Dose: 100 mls/hr Lactated Ringer's (Lactated Ringer's) 1,000 mls @ 100 mls/hr IV .Q10H [facility] Last Admin: 05/13/17 09:44 Dose: 100 mls/hr Insulin Aspart (Novolog) 0 unit SC ACHS [facility] PRN Reason: Protocol Last Admin: 05/13/17 17:26 Dose: 1 unit Levothyroxine Sodium (Synthroid) 50 mcg PO DAILY@0630 [facility] Last Admin: 05/13/17 06:32 Dose: 50 mcg Metformin HCl (Glucophage) 500 mg PO BID [facility] Last Admin: 05/13/17 17:25 Dose: 500 mg Pcjix-0-Qtlo Ethyl Esters (Lovaza) 1 gm PO BID [facility] Last Admin: 05/13/17 17:25 Dose: 1 gm Ondansetron HCl (Zofran Inj) 4 mg IVP Q6 PRN PRN Reason: Nausea/Vomiting Pantoprazole Sodium (Protonix Ec Tab) 40 mg PO DAILY [facility] Last Admin: 05/13/17 09:54 Dose: 40 mg - Labs Labs: 05/13/17 07:10 05/13/17 07:10 PT 14.8 SECONDS (9.7-12.2) H 05/09/17 19:05 INR 1.3 05/09/17 19:05 APTT 29 SECONDS (21-34) 05/09/17 19:05 - Constitutional Appears: Non-toxic, Chronically Ill - Head Exam Head Exam: NORMOCEPHALIC - Eye Exam Eye Exam: PERRL - ENT Exam ENT Exam: Mucous Membranes Dry - Neck Exam Neck Exam: absent: Lymphadenopathy - Respiratory Exam Respiratory Exam: Decreased Breath Sounds - Cardiovascular Exam Cardiovascular Exam: REGULAR RHYTHM - GI/Abdominal Exam GI & Abdominal Exam: Distended - Rectal Exam Rectal Exam: Deferred Assessment and Plan (1) Pain due to ureteral stent Status: Acute (2) Pyelonephritis Status: Acute
[2017-05-14] MEDS: Meropenem IV 1 gm in NS 50 ML IVPB SCH ×2 (00:28→10:00)
[2017-05-14] MEDS: Lactated Ringer's 1,000 ML IV SCH (00:33)
[2017-05-14 05:07] VITALS: RESP 20; TEMP 98.1
[2017-05-14] MEDS: Levothyroxine 50 MCG TAB PO SCH (06:26)
--- NOTE | 2017-05-14 07:47 | CP.PCM.PN ---
Subjective - Date & Time of Evaluation Date of Evaluation: 05/14/17 Time of Evaluation: 07:43 - Subjective Subjective: Progress Note for Dr. Pino Patient seen and examined at bedside. Nursing reports no acute events overnight , and pt has not been febrile since 05/10/17. Patient reports slight right lower quadrant "discomfort" but denies nausea/vomiting, dysuria, increased frequency or urgency. She is tolerating diet without difficulty. Objective - Vital Signs/Intake and Output Vital Signs (last 24 hours): Temp Pulse Resp BP Pulse Ox 98.1 F 92 H 20 116/74 98 05/14/17 04:25 05/14/17 04:25 05/14/17 04:25 05/14/17 04:25 05/14/17 04:25 Intake and Output: 05/14/17 05/14/17 06:59 18:59 Intake Total 1410 Balance 1410 - Medications Medications: Current Medications Acetaminophen (Tylenol 325mg Tab) 650 mg PO Q6 PRN PRN Reason: Fever >100.4 F Last Admin: 05/13/17 14:19 Dose: 650 mg Acetaminophen (Tylenol 325mg Tab) 650 mg PO Q6 PRN PRN Reason: Pain, moderate (4-7) Last Admin: 05/13/17 21:56 Dose: 650 mg Dextrose (Dextrose 50% Inj) 0 ml IV STAT PRN; Protocol PRN Reason: Hypoglycemia Protocol Dextrose (Glutose 15) 0 gm PO ONCE PRN; Protocol PRN Reason: Hypoglycemia Protocol Enoxaparin Sodium (Lovenox) 40 mg SC DAILY [facility] Last Admin: 05/13/17 09:43 Dose: 40 mg Gemfibrozil (Lopid) 600 mg PO BID [facility] Last Admin: 05/13/17 17:26 Dose: 600 mg Glucagon (Glucagen Diagnostic Kit) 0 mg IM STAT PRN; Protocol PRN Reason: Hypoglycemia Protocol Dextrose (Dextrose 5% In Water 1000 Ml) 1,000 mls @ 0 mls/hr IV .Q0M PRN; Protocol; Per Protocol PRN Reason: Hypoglycemia Protocol Meropenem (Merrem Iv 1 Gm Premix) 50 mls @ 100 mls/hr IVPB Q8H [facility] PRN Reason: Protocol Last Admin: 05/14/17 00:28 Dose: 100 mls/hr Lactated Ringer's (Lactated Ringer's) 1,000 mls @ 100 mls/hr IV .Q10H [facility] Last Admin: 05/14/17 00:33 Dose: 100 mls/hr Insulin Aspart (Novolog) 0 unit SC ACHS [facility] PRN Reason: Protocol Last Admin: 05/13/17 21:55 Dose: Not Given Levothyroxine Sodium (Synthroid) 50 mcg PO DAILY@0630 [facility] Last Admin: 05/14/17 06:26 Dose: 50 mcg Metformin HCl (Glucophage) 500 mg PO BID [facility] Last Admin: 05/13/17 17:25 Dose: 500 mg Ecaef-3-Ojwn Ethyl Esters (Lovaza) 1 gm PO BID [facility] Last Admin: 05/13/17 17:25 Dose: 1 gm Ondansetron HCl (Zofran Inj) 4 mg IVP Q6 PRN PRN Reason: Nausea/Vomiting Pantoprazole Sodium (Protonix Ec Tab) 40 mg PO DAILY [facility] Last Admin: 05/13/17 09:54 Dose: 40 mg - Labs Labs: 05/13/17 07:10 05/13/17 07:10 PT 14.8 SECONDS (9.7-12.2) H 05/09/17 19:05 INR 1.3 05/09/17 19:05 APTT 29 SECONDS (21-34) 05/09/17 19:05 - Additional Findings Additional findings: - Constitutional Appears: No Acute Distress, Older than stated age - Head Exam Head Exam: ATRAUMATIC, NORMOCEPHALIC - Eye Exam Eye Exam: EOMI - ENT Exam ENT Exam: Mucous Membranes Moist - Respiratory Exam Respiratory Exam: Clear to Ausculation Bilateral, NORMAL BREATHING PATTERN - Cardiovascular Exam Cardiovascular Exam: REGULAR RHYTHM, +S1, +S2 - GI/Abdominal Exam GI & Abdominal Exam: Soft, Tenderness (mild RLQ). absent: Guarding - negative rovsing, rigidity, firm - Neurological Exam Neurological Exam: Alert, Awake, Oriented x3 - Psychiatric Exam Psychiatric exam: Normal Affect, Normal Mood - Skin Skin Exam: Dry, Warm Assessment and Plan - Assessment and Plan (Free Text) Plan: Pyelonephritis Pt septic on presentation, but has resolved Consult placed to ID- Dr. Landa- jaylon appreciated - Discharge with 14 day course of IV Merrem 500mg Q8H 05/10/17 - Pt previously had Gentamycin once, and Cipro UA 05/09/17: Nitrate positive, LE 2+, WBC 238, Mod bacteria HCG negative Blood culture: E. coli - sensitive to Merrem Urine culture: E. Coli - sensitive to Merrem CT A/P (05/10/17): Right ureteral stent. Mild right hydronephrosis. B/l non- obstructing renal calculi as described. Hepatosplenomegaly. Diffuse fatty infiltration of the liver. S/p cholecystectomy. Minimal ascites LR @ 100cc/hr Tylenol 650mg PO Q6H PRN fever/mild pain Percocet 5/325 mg PO Q6H PRN moderate pain Anemia- stable Hgb 9.6 today, Pt denies lev hematuria, hematochezia Fecal occult x 3- negative Type and screen complete Consent for Blood complete Leukocytosis w bandemia Leukocytosis and Bands resolved WBC 7.6 on 05/14/17 Hypokalemia- resolved monitor Elevated T bili- resolved 1.8 on initial labs Normal on more recent labs Elevated triglycerides/Low HDL TG 496 Started Lovaza 1 gm PO BID 05/10/17 Continue Gemfibrozil 600mg PO BID Lipid panel Total cholesterol 133 LDL <30 HDL 14 Triglycerides 496 Hx of ureteral stones Dr. Whiteside, Urology teamcenter consultant Recent lithotripsy Right ureteral stent placed 04/28/17 Xr ABD (05/10/17): Stent remains in appropriate position. CT A/P (05/10/17): Right ureteral stent. Mild right hydronephrosis. B/l non- obstructing renal calculi as described. Hepatosplenomegaly. Diffuse fatty infiltration of the liver. S/p cholecystectomy. Minimal ascites. DM-II Metformin 500mg PO BID [facility] Accuchecks Hypoglycemia protocol A1c 4.6 Lipid panel Total cholesterol 133 LDL <30 HDL 14 Triglycerides 496 Hypothyroidism 50mcg PO Daily TSH 1.26 Free t4 1.30 Prophylaxis SCDs Protonix 40mg PO Daily Lovenox 40mg SC daily Disposition: Pt to receive 14 total days of Merrem (First dose 05/10/17 - last dose 05/23/17). If pt can receive PICC line today, she can be discharged with outpatient follow up with Dr. Whiteside. Case discussed with Dr. Pino All medical management per Dr. Pino
[2017-05-14 08:02] LABS: BASO # 0.1 K/uL (0.0-0.2); BASO % 0.7 % (0.0-2.0); EOS # 0.2 K/uL (0.0-0.7); HEMOGLOBIN 9.6 g/dL (11.0-16.0); LYMPH % 26.1 % (20.0-40.0); MEAN CELL VOLUME 85.3 fL (81.0-99.0); MEAN CORPUSCULAR HEMOGLOBIN 29.6 pg (27.0-31.0); MEAN CORPUSCULAR HGB CONC 34.7 g/dL (33.0-37.0); MEAN PLATELET VOLUME 7.6 fL (7.2-11.7); MONO # 0.6 K/uL (0.0-0.8); MONO % 8.4 % (0.0-10.0); NEUT # 4.8 K/uL (1.8-7.0); NEUT % 62.8 % (50.0-75.0); NRBC % 0.1 % (0.0-2.0); RBC 3.25 Mil/uL (3.80-5.20); RED CELL DISTRIBUTION WIDTH 13.9 % (11.5-14.5); WHITE BLOOD COUNT 7.6 K/uL (4.8-10.8)
[2017-05-14 08:08] VITALS: BP 102/67; O2SAT 97
[2017-05-14 08:16] LABS: ALB/GLOB RATIO 0.9 (1.0-2.1); ALBUMIN 3.9 g/dL (3.5-5.0); ALT/SGPT 13 U/L (9-52); AST/SGOT 24 U/L (14-36); BLOOD UREA NITROGEN 10 mg/dL (7-17); CALCIUM 9.5 mg/dl (8.6-10.4); GFR AFRICAN-AMERICAN > 60; GFR NON-AFRICAN AMERICAN > 60
[2017-05-14] MEDS: (Novolog) Insulin Aspart, Recombinant 100 u/ml 10 ml vial SC SCH ×2 (08:30→11:30)
[2017-05-14] MEDS ORDERED: Midazolam 2 MG/2 ML VIAL ONE (10:17)
[2017-05-14] MEDS: Enoxaparin 40 mg Syringe SC SCH (10:47)
[2017-05-14] MEDS: Omega-3-Acid Ethyl Esters 1 GM Cap PO SCH (10:48)
[2017-05-14] MEDS: Pantoprazole 40 mg EC Tab PO SCH (10:50)
--- NOTE | 2017-05-14 14:24 | RAD ---
HISTORY: Verify right PICC COMPARISON: No prior. FINDINGS: In situ PICC line with tip in the SVC. LUNGS: No active pulmonary disease. PLEURA: No significant pleural effusion identified, no pneumothorax apparent. CARDIOVASCULAR: Mild cardiomegaly. OSSEOUS STRUCTURES: No significant abnormalities. VISUALIZED UPPER ABDOMEN: Normal. OTHER FINDINGS: None. IMPRESSION: Right-sided PICC line with tip in the SVC.
[2017-05-14 14:54] VITALS: PULSE 98
--- NOTE | 2017-05-14 17:52 | CP.PCM.PN ---
Subjective - Date & Time of Evaluation Date of Evaluation: 05/14/17 Time of Evaluation: 11:00 - Subjective Subjective: clinically same Objective - Vital Signs/Intake and Output Vital Signs (last 24 hours): Temp Pulse Resp BP Pulse Ox 98.1 F 98 H 20 102/67 97 05/14/17 08:00 05/14/17 12:00 05/14/17 08:00 05/14/17 08:00 05/14/17 08:00 Intake and Output: 05/14/17 05/14/17 06:59 18:59 Intake Total 1410 950 Balance 1410 950 - Labs Labs: 05/14/17 07:59 05/14/17 07:59 PT 14.8 SECONDS (9.7-12.2) H 05/09/17 19:05 INR 1.3 05/09/17 19:05 APTT 29 SECONDS (21-34) 05/09/17 19:05 - Constitutional Appears: Well - Head Exam Head Exam: ATRAUMATIC, NORMAL INSPECTION, NORMOCEPHALIC - Eye Exam Eye Exam: EOMI, Normal appearance, PERRL Pupil Exam: NORMAL ACCOMODATION, PERRL - ENT Exam ENT Exam: Mucous Membranes Moist, Normal Exam - Neck Exam Neck Exam: Full ROM, Normal Inspection. absent: Lymphadenopathy - Respiratory Exam Respiratory Exam: Decreased Breath Sounds - Cardiovascular Exam Cardiovascular Exam: REGULAR RHYTHM, +S1, +S2 - GI/Abdominal Exam GI & Abdominal Exam: Soft, Diminished Bowel Sounds - Rectal Exam Rectal Exam: Deferred
== END 2017-05-14 17:01 | disposition home or self-care (01) | DRG 901 ==
LOC: C.ER 17:52 → C.9E 19:43 → C.3T 20:16 → C.6T 05-10 18:24
PROVIDERS: ADMIT Internal Medicine Nephrology; ATTEND Internal Medicine Nephrology
DX: A41.9 Sepsis, unspecified organism (principal); T83.84XA Pain due to genitourinary prosthetic devices, implants and grafts, initial encounter; N13.6 Pyonephrosis; N18.9 Chronic kidney disease, unspecified; E11.22 Type 2 diabetes mellitus with diabetic chronic kidney disease; E87.6 Hypokalemia; E87.8 Other disorders of electrolyte and fluid balance, not elsewhere classified; Y83.8 Other surgical procedures as the cause of abnormal reaction of the patient, or of later complication, without mention of misadventure at the time of the procedure; Z87.442 Personal history of urinary calculi; E78.00 Pure hypercholesterolemia, unspecified; E03.9 Hypothyroidism, unspecified; D64.9 Anemia, unspecified; R16.2 Hepatomegaly with splenomegaly, not elsewhere classified; K76.0 Fatty (change of) liver, not elsewhere classified; E78.1 Pure hyperglyceridemia; R51 Headache; B96.20 Unspecified Escherichia coli [E. coli] as the cause of diseases classified elsewhere; R11.0 Nausea; Z90.49 Acquired absence of other specified parts of digestive tract